=== PATIENT | female | born 1935 | race Caucasian/White ===

== ENCOUNTER 2018-05-01 11:28 | Inpatient (IN) ==
[2018-05-01 12:08] LABS: Basophils # 0.1 K/mcL (0.0-0.2); Basophils % 0.5 %; Eosinophils # 0.1 K/mcL (0.0-0.6); Eosinophils % 1.3 %; Hematocrit 45.9 % (35.3-44.9); Hemoglobin 15.2 g/dL (11.5-15.4); Immature Granulocytes % 0.2 % (0-4); Lymphocytes # 1.8 K/mcL (0.6-4.6); Lymphocytes % 16.7 %; Mean Corpuscular HGB Conc 33.1 g/dL (31.6-35.5); Mean Corpuscular Hemoglobin 28.1 pg (28.0-33.3); Mean Platelet Volume 12.3 fL (9.4-12.4); Monocytes % 9.1 %; Neutrophils # 7.8 K/mcL (1.6-8.9); Platelet Count 217 K/mcL (140-400); Red Cell Distribution Width 13.8 % (11.5-14.5); Segmented Neutrophils % 72.2 %
[2018-05-01 12:14] LABS: INR 1.3; Prothrombin Time 14.3 Seconds (9.4-12.1)
[2018-05-01 12:16] LABS: Activated Partial Thrombo Time 32.9 Seconds (26.0-36.0)
[2018-05-01 12:43] LABS: Troponin I 0.11 ng/mL (< 0.04)
[2018-05-01 12:48] LABS: Calcium 9.5 mg/dL (8.6-10.3); Potassium 3.6 mEq/L (3.5-5.1)
[2018-05-01] MEDS ORDERED: Aspirin 325 MG TABLET PO ONE (13:11)
[2018-05-01] MEDS ORDERED: Furosemide 40 MG/4 ML VIAL IVP ONE (13:33)
--- NOTE | 2018-05-01 13:37 | Emergency Department Note ---
Disposition Clinical Impression: Hypertensive emergency, Elevated serum creatinine Acute CHF (congestive heart failure) Qualifiers: Heart failure type: unspecified Qualified Code(s): I50.9 - Heart failure, unspecified Disposition: Admitted As Inpatient Condition: Fair SOB HPI - General Chief Complaint: ED Shortness of Breath/Dyspnea Stated Complaint: chest pain sob Time Seen by Provider: 05/01/18 11:37 Source: patient, EMS Mode of arrival: EMS Limitations: no limitations Nursing Notes Reviewed: Yes Vital Signs Reviewed: Yes - History of Present Illness 83-year-old female prior history of hypertension however she quit taking her medications over a year ago presents with 3 days of shortness of breath. No inciting events. She has had a little bit of a cough. One episode of chest pain yesterday for a few minutes. Denies any fevers, nausea, vomiting. Reports that symptoms are worse whenever she lays flat. No prior history of congestive heart failure, CAD, DVT or PE. No other complaints. Pt Subjective Complaint: shortness of breath Onset (ago): day(s) Severity: moderate Consistency/Duration: intermittent Improves with: upright position Worsens with: lying flat Associated symptoms: Reports: cough, orthopnea. Denies: chest pain, fever Treatment prior to arrival: none - Related Data Home oxygen amount: none Home Medications Medication Instructions Recorded Confirmed No Known Home Drugs 05/01/18 05/01/18 Allergies Allergy/AdvReac Type Severity Reaction Status Date / Time No Known Allergies Allergy Verified 05/01/18 10:18 All systems ED: reviewed and negative except as stated. Cardiovascular: Reports: orthopnea. Denies: chest pain Respiratory: Reports: dyspnea Gastrointestinal: Denies: abdominal pain, nausea, vomiting Past Medical History - Past Medical History Attestation: Yes The following information was validated with the patient. Source: patient Medical history: Reports: hypertension [employer] history: Reports: bilateral tubal ligation - Social History Smoking Status: Never smoker Smokeless Tobacco Status: No Alcohol use: Reports: none Drug use: Reports: none Physical Exam - General Limitations: no limitations General appearance: alert, in no apparent distress - Head Head exam: atraumatic, normocephalic - Eye Eye exam: Present: normal appearance - ENT ENT exam: normal exam - Neck Neck exam: Present: normal inspection - Chest Chest inspection: Present: normal inspection, symmetric chest wall rise - Respiratory Respiratory exam: Present: other (Diminished bibasilar otherwise clear) - Cardiovascular Cardiovascular exam: Present: regular rate, normal rhythm, normal heart sounds - Abdominal Exam Abdominal exam: Present: soft, Non-Tender. Absent: tenderness, distention, rigidity - Extremities Exam Extremities exam: Present: normal inspection, full ROM - Expanded Upper Extremity Exam Shoulder exam: Present: normal inspection, full ROM Arm exam: Present: normal inspection, full ROM Elbow exam: Present: normal inspection, full ROM Forearm/Wrist exam: Present: normal inspection, full ROM Hand exam: Present: normal inspection, full ROM Vascular exam: Normal: radial pulse - Expanded Lower Extremity Exam Hip/Pelvis exam: Present: normal inspection, full ROM Upper leg exam: Present: normal inspection, full ROM Knee exam: Present: normal inspection, full ROM Lower leg exam: Present: normal inspection, full ROM Ankle exam: Present: normal inspection, full ROM Foot/toe exam: Present: normal inspection, full ROM - Skin Skin exam: Present: warm, dry Course Course Narrative: Patient seen and examined. Vital signs reviewed. Plan for EKG, chest x-ray as well as labs. Vital Signs Temperature 98.4 F 05/01/18 11:36 Pulse Rate 84 05/01/18 11:36 Respiratory Rate 20 05/01/18 11:36 Blood Pressure 184/110 05/01/18 11:36 O2 Sat by Pulse Oximetry 97 05/01/18 11:36 Temperature 98.4 F 05/01/18 11:36 Pulse Rate 85 05/01/18 14:36 Respiratory Rate 14 05/01/18 15:49 Blood Pressure 197/110 05/01/18 15:49 O2 Sat by Pulse Oximetry 97 05/01/18 14:36 Oxygen Delivery Oxygen Delivery Nasal Cannula Shortness of Breath/Dyspnea - [facility] Narrative Medical decision making narrative: 83-year-old female with orthopnea and dyspnea. EKG is sinus with PVCs. Chest x -ray with cardiomegaly and bilateral effusions. She is profoundly hypertensive here. Treated with Lasix and nitroglycerin drip. Admitted to the hospitalist service. - Lab Data Lab results reviewed: Yes I reviewed the patient's lab results. Result diagrams: 05/01/18 11:49 05/01/18 11:49 Lab Results 05/01/18 05/01/18 05/01/18 Range/Units 11:39 11:39 11:49 WBC 10.8 (4.3-11.1) K/mcL RBC 5.40 H (3.82-4.97) M/mcL Hgb 15.2 (11.5-15.4) g/dL Hct 45.9 H (35.3-44.9) % MCV 85.0 (83.0-100.0) fL MCH 28.1 (28.0-33.3) pg MCHC 33.1 (31.6-35.5) g/dL RDW 13.8 (11.5-14.5) % Plt Count 217 (140-400) K/mcL MPV 12.3 (9.4-12.4) fL Immature Gran % 0.2 (0-4) % Seg Neutrophils % 72.2 % Lymphocytes % 16.7 % Monocytes % 9.1 % Eosinophils % 1.3 % Basophils % 0.5 % Neutrophils # 7.8 (1.6-8.9) K/mcL Lymphocytes # 1.8 (0.6-4.6) K/mcL Monocytes # 1.0 (0.0-1.3) K/mcL Eosinophils # 0.1 (0.0-0.6) K/mcL Basophils # 0.1 (0.0-0.2) K/mcL PT 14.3 H (9.4-12.1) Seconds INR 1.3 APTT 32.9 (26.0-36.0) Seconds Sodium (136-145) mEq/L Potassium (3.5-5.1) mEq/L Chloride (98-107) mEq/L Carbon Dioxide (23-29) mEq/L BUN (8-23) mg/dL Creatinine (0.60-1.20) mg/dL Est GFR ( Amer) (> 60) Est GFR (Non-Af Amer) (> 60) BUN/Creatinine Ratio (6-26) Glucose (70-105) mg/dL Calculated Osmolality (280-300) Calcium (8.6-10.3) mg/dL Troponin I (< 0.04) ng/mL B-Natriuretic Peptide 1870 H (Less than 100) pg/mL 05/01/18 Range/Units 11:49 WBC (4.3-11.1) K/mcL RBC (3.82-4.97) M/mcL Hgb (11.5-15.4) g/dL Hct (35.3-44.9) % MCV (83.0-100.0) fL MCH (28.0-33.3) pg MCHC (31.6-35.5) g/dL RDW (11.5-14.5) % Plt Count (140-400) K/mcL MPV (9.4-12.4) fL Immature Gran % (0-4) % Seg Neutrophils % % Lymphocytes % % Monocytes % % Eosinophils % % Basophils % % Neutrophils # (1.6-8.9) K/mcL Lymphocytes # (0.6-4.6) K/mcL Monocytes # (0.0-1.3) K/mcL Eosinophils # (0.0-0.6) K/mcL Basophils # (0.0-0.2) K/mcL PT (9.4-12.1) Seconds INR APTT (26.0-36.0) Seconds Sodium 138 (136-145) mEq/L Potassium 3.6 (3.5-5.1) mEq/L Chloride 103 (98-107) mEq/L Carbon Dioxide 26 (23-29) mEq/L BUN 26 H (8-23) mg/dL Creatinine 1.46 H (0.60-1.20) mg/dL Est GFR ( Amer) 41 L (> 60) Est GFR (Non-Af Amer) 34 L (> 60) BUN/Creatinine Ratio 18 (6-26) Glucose 112 H (70-105) mg/dL Calculated Osmolality 292 (280-300) Calcium 9.5 (8.6-10.3) mg/dL Troponin I 0.11 H* (< 0.04) ng/mL B-Natriuretic Peptide (Less than 100) pg/mL - Radiology Data Radiology results reviewed: Yes I reviewed the patient's radiology results. Chest X-Ray 05/01/18 11:39 IMPRESSION: Cardiomegaly with prominent interstitial markings diffusely, as well as bilateral pleural effusions, moderate on the left and small on the right. Findings felt to likely represent sequela of congestive failure. Bibasilar airspace disease could represent atelectasis, though pneumonia cannot be excluded. D/ / Frederick Jacob MD / Frederick Jacob MD Interpreting Provider: Frederick Jacob MD - EKG Data EKG attestation: Yes I reviewed and interpreted this EKG. EKG results narrative: EKG demonstrates sinus rhythm with PVCs. Left axis deviation. Prolonged OH interval of 204 with first-degree block. Normal R-wave progression. Nonspecific ST-T wave changes laterally. No gross ST elevations or depressions. No acute ischemic findings. No significant changes from prior EKG dated S.B.A.R. - S.B.A.R. Situation: Demographics, MOA Background: Presenting Complaint, Relevant PMH, Meds, & Allergies Assessment: Vital Signs, Course and respsone to treatment, Exam Concerns, Patient/Family Expectation, Pertinant Lab Results Recommendation: Barrier(s) to disposition, Recommendation based on pending studies, treatments, or consults S.B.A.R. Report Given to: Dr. Hamilton Attestation Statement - Attestation Attestation: I examined this patient and my medical decision-making was reviewed with the Resident Physician, Dr. Draper. I agree with the documented findings, disposition and treatment plan as described except to the extent set forth below. Patient is an 83-year-old white female who denies any prior cardiac history who presents to emergency department with a 3 day history of gradually worsening shortness of breath. Patient has an occasional coarse sounding cough at bedside but states that this is no worse than her baseline, history of smoking, denies any fevers chills or URI symptoms. Patient states she had some associated chest pressure with coughing and deep breathing yesterday but denies any currently. I agree with patient's physical exam findings as documented. Patient was hypertensive on arrival. After inquiring about her blood pressure she states that she has not been taking her medications for some time. Patient with coarse breath sounds suspicious for mild pulmonary edema. No significant respiratory distress or hypoxia. Patient had full lab evaluation which showed mild renal insufficiency compared to baseline, elevated BNP, and elevated troponin. Serial EKGs did not show any ischemia. Patient received aspirin on arrival as well as medications for her congestive heart failure and blood pressure. Case was discussed with hospitalist who accepted patient for admission. Concerns right now with elevated troponin possibly due to non-STEMI versus elevated serum creatinine. Suspicious for non-STEMI with new onset congestive heart failure. Patient will be admitted for further evaluation.
[2018-05-01] MEDS ORDERED: Nitroglycerin 25 MG/250 ML INFUS..BTL IVC SCH (14:30)
[2018-05-01] MEDS: niCARdipine 40 MG/200 ML MLS IVC SCH ×2 (16:31→20:13)
--- NOTE | 2018-05-01 17:14 | Internal Med History&Physical ---
<Alma Art - Last Filed: 05/01/18 18:27> Date of Encounter: 05/01/18 Time of Encounter: 16:30 Internal Medicine - H&P: HPI Chief complaint: Shortness of breath Admitted From: Emergency Dept History of present illness: Ms. Kohler is a 83 year old female who presented with worsening shortness of breath for the past 3 days and orthopnea which started 7 days ago and has been increasing in severity since. She also states that the shortness of breath is intermittent at rest, constant on exertion and worse at night when trying to lay flat. She states that she has had 2 epidoses of 1/10 chest pressure yesterday and the day before that lasted for one minute while at rest and trying to adjust position while laying in bed due to orthopnea. Today her daughter brought her to urgent care and they found an elevated blood pressure and called EMS to bring her to [place] ED for hypertensive emergency. She has a past medical history of hypertension, she states that it has been uncontrolled for years and she has seen many providers who have tried multiple unknown medications without success. She states that 12-18 months ago she was told at a dentist appointment that her SBP was around 200 and was told to see a doctor but did not. She denies any other past medical history besides surgical for tubal ligation and cholecystectomy. She stopped taking any hypertensive medications about one year ago. On arrival her blood pressure was 184/110, HR 84 , RR 20 and SpO2 97%. BNP was 1870, troponin 0.11, creatinine 1.46. EKG showed normal sinus rhythm with PVC's, left axis deviation, prolonged KS with first degree heart block, nonspecific ST-T changes and no gross ST elevations or depression, no acute ischemic changes and no change from prior EKG. Chest XR showed cadiomegaly with prominent interstitial markings diffusely, bilateral pleural effusions and bibasilar airspace disease. Past Med Surg Social Fam HX - Past Medical History Medical history: hypertension - Past Surgical History Surgical History: non-contributory, cholecystectomy Additional surgical history: Bilateral tubal ligation - Social History Smoking Status: Never smoker Smokeless Tobacco Status: No Alcohol use: none Drug use: none Activity Level: Independent ambulation Recent Out of Country Travel Within the Last 8 Weeks: No Exposure or Possible Exposure to Illness During Travel: No Internal Medicine - H&P: Meds No Known Home Drugs 05/01/18 [History] 3 Allergy/AdvReac Type Severity Reaction Status Date / Time No Known Allergies Allergy Verified 05/01/18 10:18 All Systems PM: A 10-system review of systems was performed and is negative for pertinent findings except as documented above in the HPI. - Constitutional Constitutional: no chills, no fatigue, no fever(s), no falls, no lethargy, no weakness - EENT Eyes: no change in vision Ears: no decreased hearing, no tinnitus Nose, mouth and throat: no hoarseness, no neck pain - Cardiovascular Cardiovascular ROS IM: dyspnea on exertion, orthopnea, paroxysmal nocturnal dyspnea, no chest pain, no claudication, no diaphoresis, no edema, no lightheadedness, no palpitations, no syncope Additional comments: Denies chest pain today, per HPI - Respiratory Respiratory: dyspnea on exertion, no cough, no pain on inspiration, no chest congestion, no pain with cough - Gastrointestinal Gastrointestinal: no abdominal pain, no change in bowel habits, no constipation , no diarrhea, no dysphagia, no nausea, no vomiting - Genitourinary Genitourinary: no change in urinary stream, no difficulty urinating, no dysuria , no urinary frequency, no urinary incontinence, no urinary urgency Menstruation: post menopausal - Musculoskeletal Musculoskeletal ROS IM: no arthralgias, no back pain, no limited range of motion , no muscle weakness, no numbness, no tingling - Neurological Neurological ROS: no dizziness, no focal weakness, no frequent falls, no headache(s), no loss of vision, no numbness, no paresthesias, no tingling, no weakness - Psychiatric Psychiatric: no anxiety - Endocrine Endocrine IM: no cold intolerance, no excessive sweating, no fatigue, no heat intolerance - Constitutional Vitals: Temp Pulse Resp BP Pulse Ox 98.4 F 85 14 197/110 97 05/01/18 11:36 05/01/18 14:36 05/01/18 15:49 05/01/18 15:49 05/01/18 14:36 General appearance: Present: cooperative, A&O X 3, pleasant, no acute distress, answers questions appropriately Exam: In no acute distress, answered questions appropriately - Head Head exam: Present: atraumatic, normocephalic - Eye Eye exam: Present: EOMI, PERRL, conjuntiva pink, sclera anicteric Pupils: Present: PERRL - ENT ENT exam: Present: mucous membranes moist - Neck Neck exam general surgery: Present: supple, trachea midline. Absent: lymphadenopathy, thyromegaly - Expanded Neck Exam Neck exam: Absent: carotid bruit, tracheal deviation - Respiratory Respiratory exam: Present: CTAB. Absent: accessory muscle use, rales, rhonchi, wheezes - Cardiovascular Cardiovascular exam: Present: JVD, RRR, +S1, +S2. Absent: diastolic murmur, gallop, rubs, systolic murmur - Expanded Cardiovascular Exam Peripheral pulses: 2+: Radial (L), Radial (R) - GI/Abdominal GI/Abdominal exam: Present: normal bowel sounds, soft, no peritoneal signs. Absent: distended, guarding, hepatomegaly, rebound, rigid, splenomegaly, tenderness - Extremities Exam Extremities exam: Present: normal capillary refill, warm, radial pulses palpable and symmetrical. Absent: calf tenderness, cyanotic, pedal edema, tenderness - Expanded Upper Extremities Exam General: Present: normal inspection - Expanded Lower Extremities Exam Hip exam: Absent: swelling - Neurological Exam Neurological exam: Present: alert, CN II-XII intact, oriented X3, no focal deficits, strengths equal and symetr throughout. Absent: pronater drift, facial droop, speech deficit - Psychiatric Psychiatric exam: Present: normal affect, normal mood Internal Med - H&P Results - Labs CBC & Chem 7: 05/01/18 11:49 05/01/18 11:49 - Assessment and plan (1) Hypertensive emergency Current Visit: Yes Status: Acute Assessment and plan: History of uncontrolled hypertension, not on antihypertensives for past year 184/110 in ED, during interview was 225/127 Signs of end organ damage- elevated troponin 1.1, increased creatinine 1.46 Decrease blood pressure by 10-20% over next 24 hours Currently on nicardipine drip Will start oral norvasc 5 mg po Gentle diuresis lasix 20 mg qd Continuous cardiac monitoring Trend troponins, if increase will make NPO at midnight Monitor renal function and creatinine Repeat EKG Continue to monitor (2) New onset of congestive heart failure Current Visit: Yes Status: Acute Assessment and plan: No previous history of congestive heart failure Presented with increasing shortness of breath and orthpnea for one week Chest XR showed cardiomegaly with prominent interstitial markings, bilateral pleural effusions BNP 1870 ECHO ordered Gentle diuresis with lasix 20 mg qd Monitor renal function Cardiac diet Monitor I & O Continue to monitor (3) Elevated troponin Current Visit: Yes Status: Acute Assessment and plan: Troponin elevated on admission at 0.11, trending Presented with shortness of breath and orthopnea 2 episodes of chest pain, pressure sensation 1/10 pain, duration 1 minute, at rest, yesterday and day before EKG showed sinus rhythm with PVC's, left axis deviation, 1st degree heart block, non specific ST-T waves laterally, no gross ST elevations or depression, no acute ischemic changes, no change from prior EKG Likely secondary hypertensive emergency, dyspnea and new onset CHF Begin aspirin Continue to monitor If trending up, will make NPO at midnight and consult cardiology (4) Acute kidney failure Current Visit: Yes Status: Acute Assessment and plan: Unsure of baseline creatinine Creatinine on admission elevated at 1.46, GFR 34, BUN 26 Most likely secondary to hypertensive emergency vs possible chronic kidney disease Retroperitoneal ultrasound pending U/A pending Urine electrolytes pending Continue to monitor as using lasix for gentle diuresis Qualifiers: Acute renal failure type: unspecified Qualified Code(s): N17.9 - Acute kidney failure, unspecified (5) Shortness of breath Current Visit: No Status: Acute Assessment and plan: Presented with increasing shortness of breath for past 3 days and orthopnea for past 7 days Improved, states she is no longer short of breath Currently saturating at 97% on room air Likely secondary to new onset heart failure Supplemental oxygen as needed - Time Spent With Patient Total time spent is greater than 50% in coordination of care (as documented) at patient's floor/unit and/or counseling patient: Greater than 35 minutes <Master Mejias T - Last Filed: 05/01/18 19:50> Date of Encounter: 05/01/18 Internal Medicine - H&P: HPI History of present illness: Ms. Kohler is a 83 year old female All Systems PM: A 10-system review of systems was performed and is negative for pertinent findings except as documented above in the HPI. - Constitutional Vitals: Temp Pulse Resp BP Pulse Ox 98.2 F 82 18 162/79 92 05/01/18 18:47 05/01/18 19:45 05/01/18 19:45 05/01/18 19:45 05/01/18 19:45 Internal Med - H&P Results - Labs CBC & Chem 7: 05/01/18 11:49 05/01/18 11:49 Labs: Cardiac Enzymes 05/01/18 Range/Units 17:43 Troponin I 0.10 H* (< 0.04) ng/mL - Time Spent With Patient Total time spent is greater than 50% in coordination of care (as documented) at patient's floor/unit and/or counseling patient: - Attending Attestation I have personally seen and examined this patient on 05/01/18 and reviewed her chart and labs, including medications, I have discussed plan of care with the resident physician, whose documentation reflect our plan of care. With the additions/exceptions set forth below. 83-year-old female with chronic uncontrolled hypertension who is not taking any medications at home presented with orthopnea, decreased exercise tolerance, negligible chest pain, and shortness of breath for the past week. Workup in the emergency room revealed blood pressure systolic 210, diastolic in the 100s, with suspected acute kidney injury as well as elevated troponin 0.11, BNP 1870, pulmonary vascular congestion. Physical examination is unremarkable and patient is alert and oriented. The patient will be admitted and managed for hypertensive emergency with a KI, elevated troponin, and CHF as well as pulmonary vascular congestion. Continue Nicardipine drip, Begin ASA, Norvasc, Continue Lasix, titrate and add hypertension medications as tolerated, continue aspirin, obtain echocardiogram, and retroperitoneal ultrasound, check urine analysis as well as urine electrolytes, cycle troponins. Rest of details as in the resident physicians documentation
[2018-05-01] MEDS ORDERED: Naloxone 0.4 MG/ML INJ IVP PRN (17:27)
--- NOTE | 2018-05-01 18:21 | Event Note ---
Date of Encounter: 05/01/18 I
[2018-05-01 21:57] LABS: Bilirubin,Urine Negative (Negative); Blood,Urine Negative (Negative); Clarity,Urine Clear (Clear); Color,Urine Yellow (Yellow); Glucose,Urine (UA) Normal (Normal); Ketones,Urine Negative (Negative); Leukocyte Esterase,Urine Small (Negative); Nitrite,Urine Negative (Negative); PH,Urine 6.5 pH Units (5.0-8.0); Protein,Urine 100 mg/dL (Neg-Trace); Specific Gravity,Urine 1.014 (1.010-1.025); Urobilinogen,Urine Normal (Normal)
[2018-05-01 22:00] LABS: Bacteria,Urine None Seen per hpf (None-Few); Hyaline Casts,Urine None Seen per lpf (None-Few); RBC,Urine 0-3 per hpf (0-3); Squamous Epithelial Cell,Urine Moderate per lpf (None-Few)
[2018-05-01 22:03] LABS: Sodium, Urine 67.3 mEq/L
[2018-05-02] MEDS: niCARdipine 40 MG/200 ML MLS IVC SCH ×6 (00:16→21:22)
[2018-05-02 04:52] LABS: Basophils # 0.1 K/mcL (0.0-0.2); Basophils % 0.8 %; Eosinophils # 0.3 K/mcL (0.0-0.6); Eosinophils % 2.6 %; Hematocrit 46.3 % (35.3-44.9); Hemoglobin 15.5 g/dL (11.5-15.4); Immature Granulocytes % 0.4 % (0-4); Lymphocytes # 1.7 K/mcL (0.6-4.6); Lymphocytes % 15.9 %; Mean Corpuscular HGB Conc 33.5 g/dL (31.6-35.5); Mean Corpuscular Hemoglobin 28.3 pg (28.0-33.3); Mean Corpuscular Volume 84.6 fL (83.0-100.0); Mean Platelet Volume 12.9 fL (9.4-12.4); Monocytes # 0.8 K/mcL (0.0-1.3); Monocytes % 7.6 %; Neutrophils # 7.6 K/mcL (1.6-8.9); Platelet Count 231 K/mcL (140-400); Red Blood Count 5.47 M/mcL (3.82-4.97); Red Cell Distribution Width 13.6 % (11.5-14.5); Segmented Neutrophils % 72.7 %
[2018-05-02 05:10] LABS: Calcium 9.4 mg/dL (8.6-10.3); Magnesium 2.4 mg/dL (1.6-2.6); Phosphorous 4.7 mg/dL (2.7-4.5); Potassium 3.2 mEq/L (3.5-5.1)
[2018-05-02] MEDS ORDERED: *HR* Heparin 5,000 UNIT/ML VIAL SQ SCH (06:00)
[2018-05-02] MEDS: Aspirin Enteric Coated 81 MG Tablet PO SCH (08:10)
[2018-05-02] MEDS: amLODIPine 5 MG TABLET PO SCH (08:10)
[2018-05-02 08:25] LABS: Chol/HDL Ratio 3.1 (0-4.9)
[2018-05-02] MEDS ORDERED: Furosemide 20 MG/2 ML VIAL IVP SCH (09:00)
[2018-05-02] MEDS ORDERED: amLODIPine 5 MG TABLET PO SCH (09:00)
--- NOTE | 2018-05-02 09:10 | Electrocardiograph Report ---
[place] [facility] Test Date: 2018-05-01 Pat Name: Veronica Kohler Department: [id number] Room: 2N14 Gender: [employer] Se[employer]: : 1935 Requested By: Chao Draper Order Number: [id number] Reading MD: Colten Colindres Measurements Intervals [place] Rate: 83 P: 90 CO: 202 QRS: 21 QRSD: 91 T: 113 QT: 396 QTc: 466 Interpretive Statements Sinus rhythm Ventricular premature complex Anterior infarct, old LVH Electronically Signed On 05-02-2018 9:08:54 EDT by Colten Colindres
[2018-05-02] MEDS ORDERED: *HR* Heparin 5,000 UNIT/ML VIAL IVP PRN ×2 (11:16)
[2018-05-02] MEDS ORDERED: *HR* Heparin 5,000 UNIT/ML VIAL IVP ONE (11:16)
--- NOTE | 2018-05-02 11:31 | Cardiology Consult Note ---
<Nito Blood S - Last Filed: 05/02/18 11:23> Date of Encounter: 05/02/18 Time of Encounter: 11:20 Assessment and Plan (1) Hypertensive emergency Current Visit: Yes Status: Acute Pt has a hx of uncontrolled HTN, reportedly had a SBP of 200 about 1 yr ago and never followed up -has tried multiple medications and regimens, none have worked -BP on admission was 184/110 End organ damage: -elevated troponin 0.11 --> 0.10 --> 0.27 --> 0.82 -Creatinine 1.70 (increased from 1.46), there are no records for other visits so no way to tell a baseline Pt denies any hx of cardiac problems, has never had an NV and denies having any stents. -reportedly had a stress test two years ago, which was negative CXR showed cardiomegaly with prominent interstitial markings diffusely, B/L pleural effusions, bibasilar airspace dz EKG at 13:08 on 05/01/18 showed sinus rhythm, multiple PVC, ?old anterior infarct -T wave inversion in II, III, avF , could be ischemia secondary to impaired demand No previous ECHO to compare Plan: -pt currently on Nicardipine drip -PO amlodipine as per primary 5 mg -Lasix 20mg qd as per primary -telemetry monitoring -recommend kidney consult -heparin drip as per protocol -if kidney fxn improves, cath may be needed but for now not recommended as kidney fxn shows an LEXIE -ECHO pending -cardiac diet -I&O's as per primary (2) Elevated troponin Current Visit: Yes Status: Acute As per above: -troponins trending up 0.11 -> 0.1 ---> 0.27 ---> 0.82 -heparin drip as per protocol -most likely a type II due to demand ischemia from HTN emergency -continue telemetry -if kidney fxn improves, may cath -ECHO pending -ASA 81mg daily, continue Lipitor -will increase Lopressor to 25mg PO BID (3) Acute kidney failure Current Visit: Yes Status: Acute There is no record of a baseline BUN/Perinatal Specialist for the pt -Admission creatinine 1.46, BUN 26 -GFR 34 Currently creatinine is 1.70, BUN 33, GFR 29 Retroperitoneal US showed no hydronephrosis, PVR 186 mL UA showed small leukocyte esterase, 5-15 WBC, moderate squamous epithelial cells Plan: -consult nephrology if ok with primary -Lasix as per primary -continue to monitor BUN/Perinatal Specialist and GFR -avoid nephrotoxic agents -strict I&O's Qualifiers: Acute renal failure type: unspecified Qualified Code(s): N17.9 - Acute kidney failure, unspecified Discussion w patient/family: The assessment and plan as outlined above was discussed with the patient and/or family members who expressed understanding and agreement. All questions were answered. Thank you for involving us in the care of your patient. Please call with any questions. History of Present Illness Consult date: 05/02/18 Requesting physician: Alma Art Consult reason: elevated troponin Chief complaint: SOB History of present illness: Ms. Kohler is a 83 year old female who has c/o worsening shortness of breath for the last 4 days. Pt has a PMH of HTN. She states that she began "breathing fast " 4 days ago and couldn't "breath properly." The severity increased over the last few days and she had SOB at both rest and with exertion, worse with trying to lay flat. She states that she didn't have any chest pain associated with the SOB. She was unable to talk loudly and felt like she had a pressure on her chest , although didn't say it was a pain. She denies any associated cough. The daughter reportedly brought her to urgent care and she had elevated BP, so was brought to [place] [facility] for HTN emergency. She has a hard time controlling her BP and has tried many different regimens. BP has high as the 200's when she went to a dentist appt about 1 yr ago. BP on arrival was 184/110, HR 84 and the pt was treated with In the ER troponin 0.11, trending up ---> 0.1 ---> 0.27 ---> 0.82, most likely demand ischemia and inadequate oxygen delivery 2/2 HTN (type 2) -BNP 1870, 806 most likely secondary to LEXIE Pt denies any hx of cardiac problems, has never had an NV and denies having any stents. -reportedly had a stress test two years ago, which was negative CXR showed cardiomegaly with prominent interstitial markings diffusely, B/L pleural effusions, bibasilar airspace dz EKG at 13:08 on 05/01/18 showed sinus rhythm, multiple PVC, ?old anterior infarct -T wave inversion in II, III, avF , could be ischemia secondary to impaired demand Fluids - none Electrolytes - potassium 3.2 Nutrition - cardiac diet DVT prophylaxis - heparin drip as per protocol GI prophylaxis - not indicated Past Med Surg Social Fam HX - Past Medical History Medical history: hypertension - Past Surgical History Surgical History: non-contributory, cholecystectomy Additional surgical history: Bilateral tubal ligation - Social History Smoking Status: Never smoker Smokeless Tobacco Status: No Alcohol use: none Drug use: none Medications and Allergies No Known Home Drugs 05/01/18 [History] 3 Allergy/AdvReac Type Severity Reaction Status Date / Time No Known Allergies Allergy Verified 05/01/18 10:18 All Systems Review: The remainder of the systems were reviewed and are negative - Constitutional Constitutional: no chills, no fever(s) - Cardiovascular Cardiovascular: dyspnea at rest, dyspnea on exertion, leg edema, orthopnea, paroxysmal nocturnal dyspnea, no chest pain at rest, no chest pain with exertion , no palpitations - Respiratory Respiratory: dyspnea, no cough, no wheezing - Gastrointestinal Gastrointestinal: no abdominal pain, no diarrhea - Genitourinary Genitourinary: no dysuria - Neurological Neurological: no numbness, no syncope, no tingling Physical Examination Vital Signs, Last 4 Hours Pulse Resp BP Pulse Ox 05/02/18 10:38 69 20 93 05/02/18 08:25 18 157/65 93 05/02/18 07:52 75 General: Conversant HEENT: Atraumatic Neck: No JVD Cardiac: Reg Rate and Rhythm, Normal S1 and S2, No Murmur Lungs: Normal Breath Sounds, No Wheeze, Rales, Rhonchi Neuro: Alert and responsive, No focal deficits noted Abdomen: Soft, Non-Tender Skin: No rashes noted on visualized skin Musculoskeletal: No Chest Wall Tenderness Extremities: Normal Pulses, Other (mild B/L LE edema) Results 05/02/18 04:25 05/02/18 04:25 Lab Results 05/01/18 05/02/18 05/02/18 17:43 00:18 04:25 WBC 10.4 Hgb 15.5 H Hct 46.3 H Plt Count 231 Sodium Potassium Chloride Carbon Dioxide BUN Creatinine Glucose Calcium Magnesium Troponin I 0.10 H* 0.27 H* B-Natriuretic Peptide 05/02/18 05/02/18 05/02/18 04:25 04:25 04:25 WBC Hgb Hct Plt Count Sodium 139 Potassium 3.2 L Chloride 103 Carbon Dioxide 28 BUN 33 H Creatinine 1.70 H Glucose 126 H Calcium 9.4 Magnesium 2.4 Troponin I 0.82 H* B-Natriuretic Peptide 806 H Consult Discharge Plan - Plan Referrals: Debbie Keith CNP [Partnered Physician] - (Office will call patient at home with follow up appointment) Rosetta Esparza CNP [Advanced Practice Nurse] - 05/08/18 9:45 am (Please arrive 30 minutes early to fill out paper work. Take with you your ins. card, Picture ID, all medications in the bottles including over the counter meds. This office does not give out controlled meds. If you need to cancel please call 24 hour before your appointment at [phone]. This is located in the medical office building [address].) <Kaylie Carlisle - Last Filed: 05/02/18 16:27> Date of Encounter: 05/02/18 - Attending Attestation I examined this patient and my medical decision-making was reviewed with the Resident Physician. I agree with the documented findings, disposition and treatment plan. 83F presenting with worsening SOB over the past few days associated with chest pressure. Generally does not doctor - last seen by PCP over a year ago. Patient hemodynamically stable. Troponin noted to be elevating since admission. Denies chest pain. ECG demonstrates LVH criteria with secondary repolarization. No acute findings. Impression/Plan: 1. NSTEMI: Elevated troponin now 1.23 in setting of renal dysfunction chronicity unknown and hypertensive urgency. Recommend trend troponin, continue heparin gtt, asa, statin. Discussed consideration for C but would like to see improvement in renal function. Will stop lasix. R/B/A of cath were discussed with patient who expressed understanding - would like to discuss with family first. Await echo findings. 2. HTN: Uncontrolled on admission now on nicardipine gtt. Will defer to primary team. Assessment and Plan Discussion w patient/family: The assessment and plan as outlined above was discussed with the patient and/or family members who expressed understanding and agreement. All questions were answered. Thank you for involving us in the care of your patient. Please call with any questions. History of Present Illness History of present illness: Ms. Kohler is a 83 year old female All Systems Review: The remainder of the systems were reviewed and are negative Physical Examination Vital Signs, Last 4 Hours Temp Pulse Resp BP Pulse Ox 05/02/18 15:44 74 05/02/18 15:40 97.7 F 72 18 149/61 94 05/02/18 13:58 75 20 141/53 95 05/02/18 13:00 74 20 150/76 94 Results 05/02/18 11:38 05/02/18 04:25 Lab Results 05/01/18 05/02/18 05/02/18 17:43 00:18 04:25 WBC 10.4 Hgb 15.5 H Hct 46.3 H Plt Count 231 INR Sodium Potassium Chloride Carbon Dioxide BUN Creatinine Glucose Calcium Magnesium Troponin I 0.10 H* 0.27 H* B-Natriuretic Peptide 05/02/18 05/02/18 05/02/18 04:25 04:25 04:25 WBC Hgb Hct Plt Count INR Sodium 139 Potassium 3.2 L Chloride 103 Carbon Dioxide 28 BUN 33 H Creatinine 1.70 H Glucose 126 H Calcium 9.4 Magnesium 2.4 Troponin I 0.82 H* B-Natriuretic Peptide 806 H 05/02/18 05/02/18 05/02/18 11:38 11:38 11:54 WBC 10.8 Hgb 14.7 Hct 45.0 H Plt Count 224 INR 1.2 Sodium Potassium Chloride Carbon Dioxide BUN Creatinine Glucose Calcium Magnesium Troponin I 1.23 H* B-Natriuretic Peptide
[2018-05-02 12:04] LABS: Hemoglobin 14.7 g/dL (11.5-15.4); Mean Corpuscular HGB Conc 32.7 g/dL (31.6-35.5); Mean Corpuscular Hemoglobin 28.1 pg (28.0-33.3); Mean Platelet Volume 12.8 fL (9.4-12.4); Platelet Count 224 K/mcL (140-400); Red Blood Count 5.23 M/mcL (3.82-4.97); Red Cell Distribution Width 13.7 % (11.5-14.5)
[2018-05-02 12:10] LABS: Heparin anti-factor XA UFH 0.03 IU/mL (0.30-0.70)
[2018-05-02 12:11] LABS: INR 1.2; Prothrombin Time 13.5 Seconds (9.4-12.1)
[2018-05-02] MEDS: Heparin 25,000 UNIT/500 ML D5W 25,000 UNIT/500 ML BAG IVC SCH (12:32)
--- NOTE | 2018-05-02 14:12 | Internal Med Progress Note ---
<Alma Art - Last Filed: 05/02/18 14:37> Hospitalist Progress Note - Encounter Date of Encounter: 05/02/18 Time of Encounter: 10:30 - Subjective Interval History: Today is hospital day 1. Miss Kohler states that she is feeling well. She states that shortness of breath has decreased, she denies chest pain or palpitations. She admits to frequent throat clearing most likely due to post nasal drip and denies cough. She states that orthopnea is still present. She denies headache, vision changes, weakness, lightheadedness. She denies abdominal pain, diarrhea, constipation, dysuria, leg swelling or calf pain. Diagnosis, treatment and plan were explained to her understanding and all questions were answered. - Exam Vitals: Temp Pulse Resp BP Pulse Ox 98.1 F 75 20 141/53 95 05/02/18 11:40 05/02/18 13:58 05/02/18 13:58 05/02/18 13:58 05/02/18 13:58 Exam: General: Resting comfortably, in no acute distress, AAOx3, pleasant HEENT: Normocephalic, atraumatic, EOMI, PERRL, mucus membranes moist. Neck soft , supple, trachea midline, no cervical lymphadenopathy. Cardio: Mild JVD present. Regularly irregular rate, no murmurs, rubs or gallops. Normal S1, S2. No carotid bruits. Pulmonary: No wheezes, rales or rhonchi. No accessory respiratory muscle use. Abdomen: Soft, non tender, non distended, normal bowel sounds, no guarding, rebound or rigidity. No CVA or suprapubic tenderness. Extremities: Radial and dorsal pedis pulses 2+ and symmetrical, normal capillary refill, no clubbing. No peripheral edema or calf tenderness. Neuro: CN 2-12 intact, no focal deficits. Psych: Normal mood and affect, answers questions appropriately - Assessment and Plan (1) Hypertensive emergency Current Visit: Yes Status: Acute Assessment and Plan: History of uncontrolled hypertension, not on antihypertensives for past year 184/110 on admission, currently at 141/53 Creatinine on admission 1.46, currently 1.70 Troponin on admission 0.10, is continuing to trend upwards, currently 1.23 Cardiology consulted: recs include heparin drip, increased metoprolol 25 mg BID and possible cath pending nephrology recs on renal function Continue nicardipine drip, amlodipine 10 mg, aspirin 81 mg, atorvastatin 20 mg Lasix discontinued as increased creatinine Phosphorus 4.7, Magnesium 2.4, Potassium 3.2 Replaced potassium Continuous cardiac monitoring Continue to monitor renal function ECHO report pending (2) Elevated troponin Current Visit: Yes Status: Acute Assessment and Plan: Troponin on admission 0.11, has increased to 1.23 Cardiology consulted, started heparin drip, increased metoprolol, considering [facility] pending nephro recs Likely secondary to HTN emergency vs new onset CHF vs dyspnea Continue heparin drip, aspirin, nicardipine drip, amlodipine and metoprolol Continue to monitor (3) New onset of congestive heart failure Current Visit: Yes Status: Acute Assessment and Plan: Presented with shortness of breath, orthopnea and decreased exercise tolerance. Likely secondary to uncontrolled hypertension, patient stopped taking antihypertensives about 1 year ago BNP on admission 1870 Chest XR showed pulmonary vascular congestion Lasix currently held as increase in creatinine Net balance at +570 mL Cardiac diet (4) Acute kidney failure Current Visit: Yes Status: Acute Assessment and Plan: Unknown baseline renal function On admission, Cr 1.46, GFR 34, BUN 26 Currently Cr 1.70, GFR 29, BUN 33 Likely secondary to hypertensive emergency Lasix held due to rise in Cr Renal ultrasound showed no hydronephrosis U/A showed proteinuria Continue to monitor Nephrology recs pending (5) Shortness of breath Current Visit: No Status: Inactive Assessment and Plan: Improving, denies shortness of breath today Presented with increasing shortness of breath and orthopnea Most likely secondary to new onset heart failure Currently 95% on 2L nasal cannula continue supplemental oxygen as needed DVT Prophylaxis: On heparin drip - Time Spent with Patient Total time spent is greater than 50% in coordination of care (as documented) at patient's floor/unit and/or counseling patient: Internal Medicine: Result - Labs CBC & Chem 7: 05/02/18 11:38 05/02/18 04:25 Labs: Short CBC 05/02/18 05/02/18 Range/Units 04:25 11:38 WBC 10.4 10.8 (4.3-11.1) K/mcL Hgb 15.5 H 14.7 (11.5-15.4) g/dL Hct 46.3 H 45.0 H (35.3-44.9) % Plt Count 231 224 (140-400) K/mcL Neutrophils # 7.6 (1.6-8.9) K/mcL BMP 05/02/18 04:25 Sodium 139 Potassium 3.2 L Chloride 103 Carbon Dioxide 28 BUN 33 H Creatinine 1.70 H Glucose 126 H Calcium 9.4 Cardiac Enzymes 05/01/18 05/02/18 05/02/18 Range/Units 17:43 00:18 04:25 Troponin I 0.10 H* 0.27 H* 0.82 H* (< 0.04) ng/mL 05/02/18 Range/Units 11:54 Troponin I 1.23 H* (< 0.04) ng/mL Urine 05/01/18 Range/Units 21:31 Urine Color Yellow (Yellow) Urine Clarity Clear (Clear) Urine pH 6.5 (5.0-8.0) pH Units Ur Specific [place] 1.014 (1.010-1.025) Urine Protein 100 H (Neg-Trace) mg/dL Urine Glucose (UA) Normal (Normal) mg/dL - ABG Interpretation ABG results: PT/INR, D-dimer PT 13.5 Seconds (9.4-12.1) H 05/02/18 11:38 - Impressions Impressions Retroperitoneum Ultrasound 05/01/18 17:32 IMPRESSION: 1. No hydronephrosis. 2. Postvoid bladder volume is 186 mL. D/ / Jose Luis Blake MD / Jose Luis Blake MD Interpreting Provider: Jose Luis Blake MD - VTE Documentation of Mechanical Device: Intermittent pneumatic compression device Consult Discharge Plan - Plan Referrals: Debbie Keith CNP [Partnered Physician] - (Office will call patient at home with follow up appointment) Rosetta Esparza CNP [Advanced Practice Nurse] - 05/08/18 9:45 am (Please arrive 30 minutes early to fill out paper work. Take with you your ins. card, Picture ID, all medications in the bottles including over the counter meds. This office does not give out controlled meds. If you need to cancel please call 24 hour before your appointment at [phone]. This is located in the medical office building [address].) <Master Mejias T - Last Filed: 05/02/18 14:59> Hospitalist Progress Note - Encounter Date of Encounter: 05/02/18 - Exam Vitals: Temp Pulse Resp BP Pulse Ox 98.1 F 75 20 141/53 95 05/02/18 11:40 05/02/18 13:58 05/02/18 13:58 05/02/18 13:58 05/02/18 13:58 - Time Spent with Patient Total time spent is greater than 50% in coordination of care (as documented) at patient's floor/unit and/or counseling patient: Internal Medicine: Result - Labs CBC & Chem 7: 05/02/18 11:38 05/02/18 04:25 Labs: Short CBC 05/02/18 05/02/18 Range/Units 04:25 11:38 WBC 10.4 10.8 (4.3-11.1) K/mcL Hgb 15.5 H 14.7 (11.5-15.4) g/dL Hct 46.3 H 45.0 H (35.3-44.9) % Plt Count 231 224 (140-400) K/mcL Neutrophils # 7.6 (1.6-8.9) K/mcL BMP 05/02/18 04:25 Sodium 139 Potassium 3.2 L Chloride 103 Carbon Dioxide 28 BUN 33 H Creatinine 1.70 H Glucose 126 H Calcium 9.4 Cardiac Enzymes 05/01/18 05/02/18 05/02/18 Range/Units 17:43 00:18 04:25 Troponin I 0.10 H* 0.27 H* 0.82 H* (< 0.04) ng/mL 05/02/18 Range/Units 11:54 Troponin I 1.23 H* (< 0.04) ng/mL Urine 05/01/18 Range/Units 21:31 Urine Color Yellow (Yellow) Urine Clarity Clear (Clear) Urine pH 6.5 (5.0-8.0) pH Units Ur Specific [place] 1.014 (1.010-1.025) Urine Protein 100 H (Neg-Trace) mg/dL Urine Glucose (UA) Normal (Normal) mg/dL - ABG Interpretation ABG results: PT/INR, D-dimer PT 13.5 Seconds (9.4-12.1) H 05/02/18 11:38 - Impressions Impressions Retroperitoneum Ultrasound 05/01/18 17:32 IMPRESSION: 1. No hydronephrosis. 2. Postvoid bladder volume is 186 mL. D/ / Jose Luis Blake MD / Jose Luis Blake MD Interpreting Provider: Jose Luis Blake MD - Attending Attestation I have personally seen and examined this patient on 05/02/18 and reviewed her chart and labs, including medications, I have discussed plan of care with the resident physician, whose documentation reflect our plan of care. With the additions/exceptions set forth below. 83-year-old female being managed for HTN emergency with pulm edema, CHF, LEXIE and elevated troponin She continues to deny chest pain, reported orthopnea, improved with O2 supplementation She received lasix yesterday and this mrn, with improvement in shortness of breath. Blood pressure currently being controlled with nicardipine drip, amlodipine, metoprolol tapering off nicardipine infusion. 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 Continue O2 supplementation, replace K, Rest of details as in the resident physicians documentation <Alma Art - Last Filed: 05/02/18 14:37> (4) Acute kidney failure Qualifiers: Acute renal failure type: unspecified Qualified Code(s): N17.9 - Acute kidney failure, unspecified
[2018-05-03 00:45] LABS: Basophils # 0.1 K/mcL (0.0-0.2); Basophils % 0.6 %; Eosinophils # 0.5 K/mcL (0.0-0.6); Eosinophils % 4.8 %; Hematocrit 41.1 % (35.3-44.9); Hemoglobin 13.4 g/dL (11.5-15.4); Immature Granulocytes % 0.4 % (0-4); Lymphocytes # 2.2 K/mcL (0.6-4.6); Lymphocytes % 19.6 %; Mean Corpuscular HGB Conc 32.6 g/dL (31.6-35.5); Mean Corpuscular Hemoglobin 28.2 pg (28.0-33.3); Mean Corpuscular Volume 86.3 fL (83.0-100.0); Mean Platelet Volume 12.9 fL (9.4-12.4); Monocytes % 8.6 %; Neutrophils # 7.5 K/mcL (1.6-8.9); Platelet Count 226 K/mcL (140-400); Red Blood Count 4.76 M/mcL (3.82-4.97); Red Cell Distribution Width 13.8 % (11.5-14.5)
[2018-05-03 00:51] LABS: Calcium 8.6 mg/dL (8.6-10.3); Potassium 3.5 mEq/L (3.5-5.1)
[2018-05-03] MEDS: niCARdipine 40 MG/200 ML MLS IVC SCH ×4 (01:34→21:44)
[2018-05-03] MEDS: amLODIPine 5 MG TABLET PO SCH (08:35)
[2018-05-03] MEDS: Aspirin Enteric Coated 81 MG Tablet PO SCH (08:35)
--- NOTE | 2018-05-03 08:53 | Electrocardiograph Report ---
[place] [id number] Test Date: 2018-05-01 Pat Name: Veronica Kohler Department: [facility] Room: 2N14 Gender: F Human Service Specialist: : [id number] Requested By: Kristie Doty Order Number: [id number] Reading MD: Rico Dasilva Measurements Intervals Nelson Rate: 85 P: 63 ND: 204 QRS: -13 QRSD: 92 T: 117 QT: 407 QTc: 484 Interpretive Statements Sinus rhythm Multiple ventricular premature complexes Possible anterior infarct, old Left ventricular hypertrophy with ST-T changes Electronically Signed On 05-03-2018 8:51:54 EDT by Rico Dasilva
[2018-05-03] MEDS ORDERED: 0.9 % Sodium Chloride 250 ML IVC ONE (09:34)
--- NOTE | 2018-05-03 10:18 | Cardiology Progress Note ---
Date of Encounter: 05/03/18 Time of Encounter: 09:00 Assessment and Plan (1) Atrial fibrillation Current Visit: Yes Status: Acute Telemetry demonstrates atrial fibrillation which is a new diagnosis for the patient. We briefly discussed this. Suspect this is in part due to age and structural heart disease. However, cannot rule out CAD. Recommend continuing AVN blockers at this time. Have considered LHC due to elevated troponins but waiting for improvement in renal function. She is on heparin gtt. Anticoagulation recommendations to follow decision pending cath (CHADSVASC 4). Qualifiers: Atrial fibrillation type: unspecified Qualified Code(s): I48.91 - Unspecified atrial fibrillation (2) Hypertensive emergency Current Visit: Yes Status: Acute Blood pressure better controlled. Now on metoprolol, norvasc and nicardipine drip which should be titrated down. Will defer BP management to primary team. (3) Elevated troponin Current Visit: Yes Status: Acute Recommend continue to trend troponins for downtrend. Echo returned demonstrating normal LVEF without wall motion abnormalities. Troponin may be in part due to hypertensive urgency. However, she does have risk factors for CVD and have discussed LHC. However, we are waiting for renal function to improve. Would appreciate a Nephrology consultation. Continue heparin gtt, asa , statin, BB. Patient chest pain free. Discussion w patient/family: The assessment and plan as outlined above was discussed with the patient and/or family members who expressed understanding and agreement. All questions were answered. Thank you for involving us in the care of your patient. Please call with any questions. Subjective Principal diagnosis: Elevated Troponin Interval history: Patient resting in bed comfortably in NAD. Has no new complaints this morning. Denies chest pain overnight. No palpitations. Objective Vital Signs, Last 4 Hours Temp Pulse Resp BP Pulse Ox 05/03/18 08:00 97.9 F 69 16 149/54 96 General: Conversant, No Apparent Distress HEENT: Mucus Membranes Moist Neck: No JVD Cardiac: No Murmur, Other (irregularly irregular) Lungs: Normal Breath Sounds Neuro: Alert and responsive, No focal deficits noted Abdomen: Soft, Non-Tender, Other (bowel sounds present) Extremities: Other (no significant LE edema) Results 05/03/18 00:16 05/03/18 00:16 Lab Results 05/02/18 05/02/18 05/02/18 11:38 11:38 11:54 WBC 10.8 Hgb 14.7 Hct 45.0 H Plt Count 224 INR 1.2 Sodium Potassium Chloride Carbon Dioxide BUN Creatinine Glucose Calcium Troponin I 1.23 H* 05/03/18 05/03/18 00:16 00:16 WBC 11.3 H Hgb 13.4 Hct 41.1 Plt Count 226 INR Sodium 134 L Potassium 3.5 Chloride 110 H Carbon Dioxide 23 BUN 40 H Creatinine 2.21 H Glucose 125 H Calcium 8.6 Troponin I - Imaging and Cardiology Echo: report reviewed, image reviewed - EKG Interpretation EKG results cardiology: other (telemetry demonstrates average HR 70's, atrial fibrillation noted) - VTE Documentation of Mechanical Device: Intermittent pneumatic compression device Consult Discharge Plan - Plan Referrals: Debbie Keith CNP [Partnered Physician] - (Office will call patient at home with follow up appointment) Rosetta Esparza CNP [Advanced Practice Nurse] - 05/08/18 9:45 am (Please arrive 30 minutes early to fill out paper work. Take with you your ins. card, Picture ID, all medications in the bottles including over the counter meds. This office does not give out controlled meds. If you need to cancel please call 24 hour before your appointment at [phone]. This is located in the medical office building [address].)
--- NOTE | 2018-05-03 10:27 | Internal Med Progress Note ---
Hospitalist Progress Note - Encounter Date of Encounter: 05/03/18 Time of Encounter: 09:10 - Subjective Interval History: 83 F admitted with HTN Emergency with elevated troponin,LEXIE, suspect CKD, CHF with pulm edema, hypoxia troponin continued to up-trend and cardiology was consulted Seen and examined at bedside She remains with poor insight Renal USS showed urinary retention-Finley and strict I and Os ordered this a.m Renal function continues to be worse, nephrology eval is pending, has been requested ECHO noted for normal EF, severe concentric LVH, moderate diastolic dysfunction - Exam Vitals: Temp Pulse Resp BP Pulse Ox 97.9 F 69 16 149/54 96 05/03/18 08:00 05/03/18 08:00 05/03/18 08:00 05/03/18 08:00 05/03/18 08:00 Exam: General: Resting comfortably, in no acute distress, AAOx3, pleasant HEENT: Normocephalic, atraumatic, EOMI, PERRL, mucus membranes moist. Neck soft , supple, trachea midline, no cervical lymphadenopathy. Cardio: Mild JVD present. Regularly irregular rate, no murmurs, rubs or gallops. Normal S1, S2. No carotid bruits. Pulmonary: No wheezes, rales or rhonchi. No accessory respiratory muscle use. Abdomen: Soft, non tender, non distended, normal bowel sounds, no guarding, rebound or rigidity. No CVA or suprapubic tenderness. Extremities: Radial and dorsal pedis pulses 2+ and symmetrical, normal capillary refill, no clubbing. No peripheral edema or calf tenderness. Neuro: CN 2-12 intact, no focal deficits. Psych: Normal mood and affect, answers questions appropriately - Assessment and Plan (1) Urinary retention Current Visit: Yes Status: Acute Assessment and Plan: Bladder scan showed post-void residual of 186cc Renal function continued to worsen Place Finley and strict I and Os Continue tamsulosin (2) CKD (chronic kidney disease) Current Visit: Yes Status: Suspected Assessment and Plan: Suspected Patient with chronically uncontrolled HTN Elevatd Mag and PHos on arrival UA noted for proteinuria Nephrology consulted, continue to monitor, avoid nephrotoxins (3) Acute kidney failure Current Visit: Yes Status: Acute Assessment and Plan: On top of suspected CKD Receievd two doses of lasix on arrival due to pulm edema , CHF and hypoxia Lasix held Give gentle hydration-250cc Place Finley, I and Os, avoid nephrotoxins Renal eval is pending (4) Elevated troponin Current Visit: Yes Status: Acute Assessment and Plan: Type II ischemia likely due to demand from HTN emergency ECHO noted, EF preserved Also has Afib on tele Continue heparin infusion, monitor PTT, continue BB, continue ASA and Lipitor For LHC when kidney function improves Cardiology is following (5) Hypertensive emergency Current Visit: Yes Status: Acute Assessment and Plan: Continue nicardipine, goal is to wean off Continue amlodipine Continue BB (6) New onset of congestive heart failure Current Visit: Yes Status: Acute Assessment and Plan: Lasix held due to ELXIE CHFpEF, moderate LVDD on ECHO Continue O2 , continue BB, (7) Hypoxia Current Visit: Yes Status: Acute Assessment and Plan: CXR with pulm edema on admission Continue O2 supplement - Time Spent with Patient Total time spent is greater than 50% in coordination of care (as documented) at patient's floor/unit and/or counseling patient: Internal Medicine: Result - Labs CBC & Chem 7: 05/03/18 00:16 05/03/18 00:16 Labs: Short CBC 05/02/18 05/03/18 Range/Units 11:38 00:16 WBC 10.8 11.3 H (4.3-11.1) K/mcL Hgb 14.7 13.4 (11.5-15.4) g/dL Hct 45.0 H 41.1 (35.3-44.9) % Plt Count 224 226 (140-400) K/mcL Neutrophils # 7.5 (1.6-8.9) K/mcL BMP 05/03/18 00:16 Sodium 134 L Potassium 3.5 Chloride 110 H Carbon Dioxide 23 BUN 40 H Creatinine 2.21 H Glucose 125 H Calcium 8.6 Cardiac Enzymes 05/02/18 Range/Units 11:54 Troponin I 1.23 H* (< 0.04) ng/mL - ABG Interpretation ABG results: PT/INR, D-dimer PT 13.5 Seconds (9.4-12.1) H 05/02/18 11:38 - Impressions Impressions Echocardiogram 05/02/18 17:32 Impressions: Normal LV chamber size and systolic function, LVEF 55%. Severe concentric LVH, moderate diastolic dysfunction. Normal RV size and function. Moderate LA dilatation, mild RA dilatation Mild MR, TR and AR. Low CVP, mild pulmonary hypertension, RVSP 46 mmHg. Small posterior pericardial effusion without tamponade physiology Moderate size pleural effusion Left Ventricular Wall Motion: Rest Echo Findings All wall segments showed normal motion. Findings: Study Quality * Technically adequate exam. ECG Findings * Normal sinus rhythm. Left Ventricle * LVEF 60%. * Severe concentric left ventricular hypertrophy. Moderate abnormal diastolic sfunction, type II. Aorta * Normally sized aortic root. Pericardium * There is a small pericardial effusion present, 7mm posteriorly. No evidence of tamponade. Tricuspid Valve * Mild tricuspid regurgitation. * Estimated RVSP is 46mmHg. * Estimated RA pressure is 5 mmHg. Mitral Valve * Trace mitral regurgitation. Right Ventricle * Normal right ventricular structure and function. Right Atrium * Mildly dilated right atrium. Aortic Valve * Trileaflet aortic valve. * No aortic stenosis. * Mild aortic regurgitation. Left Atrium * Moderately dilated left atrium. Pleural Effusion * Moderate pleural effusion. IVC * Normal IVC dimensions and inspiratory collapse. Pulmonic Valve * Normal pulmonic valve structure and function. - VTE Documentation of Mechanical Device: Intermittent pneumatic compression device Consult Discharge Plan - Plan Referrals: Debbie Keith CNP [Partnered Physician] - (Office will call patient at home with follow up appointment) Rosetta Esparza CNP [Advanced Practice Nurse] - 05/08/18 9:45 am (Please arrive 30 minutes early to fill out paper work. Take with you your ins. card, Picture ID, all medications in the bottles including over the counter meds. This office does not give out controlled meds. If you need to cancel please call 24 hour before your appointment at [phone]. This is located in the medical office building [address].) (2) CKD (chronic kidney disease) Qualifiers: Chronic kidney disease stage: unspecified stage Qualified Code(s): N18.9 - Chronic kidney disease, unspecified (3) Acute kidney failure Qualifiers: Acute renal failure type: unspecified Qualified Code(s): N17.9 - Acute kidney failure, unspecified
--- NOTE | 2018-05-03 11:43 | Nephrology Consult Note ---
Date of Encounter: 05/02/18 Time of Encounter: 15:00 Assessment and Plan (1) Acute kidney failure Status: Resolved Patient with acute kidney injury of unclear etiology. Could be secondary to control of her blood pressure versus other. Patient has a history of taking NSAIDs, but states she only took them once a week. Baseline renal function is unknown, but with echogenicity of the cortex seen on ultrasound in context with a history of uncontrolled hypertension indicates she likely had renal dysfunction prior to this insult. Adjust medications for renal function. Avoid nephrotoxins. Rate of rise of her creatinine is starting to slow. Monitor urine output. Qualifiers: Acute renal failure type: with acute tubular necrosis Qualified Code(s): N17.0 - Acute kidney failure with tubular necrosis (2) Hypertensive emergency Status: Resolved Patient with uncontrolled blood pressure who states she has not been on blood pressure medication in quite some time. Unable to use diuretics or TONIA-I/ARB secondary to renal dysfunction. Consider adding oral vasodilator such as hydralazine to help wean off nicardipine. History of Present Illness - Reason for Consult Consult date: 05/02/18 accelerated hypertension - Chief Complaint LEXIE - History of Present Illness Patient is an 83 yo woman with a history of hypertension who has been nonadherant with medications presents with uncontrolled hypertension and acute kidney injury. Past Med Surg Social Fam HX - Past Medical History Medical history: hypertension - Past Surgical History Surgical History: non-contributory, cholecystectomy Additional surgical history: Bilateral tubal ligation - Social History Smoking Status: Never smoker Smokeless Tobacco Status: No Alcohol use: none Drug use: none Medications and Allergies Amlodipine Besylate 10 mg PO DAILY #30 tablet 05/10/18 [Rx] Aspirin Enteric Coated [Aspirin EC] 81 mg PO DAILY tablet. 05/10/18 [Rx] Atorvastatin [Lipitor] 20 mg PO HS #30 tablet 05/10/18 [Rx] Furosemide [Lasix] 40 mg PO DAILY #30 tablet 05/10/18 [Rx] Metoprolol [Lopressor] 50 mg PO BID #60 tablet 05/10/18 [Rx] Warfarin [Coumadin] 2.5 mg PO 1800 #30 tablet 05/10/18 [Rx] hydrALAZINE [HydrALAZINE] 50 mg PO Q8HR #180 tablet 05/10/18 [Rx] 3 Allergy/AdvReac Type Severity Reaction Status Date / Time No Known Allergies Allergy Verified 05/01/18 10:18 Review of Systems All Systems: reviewed and no additional remarkable complaints except as stated Exam - Vital Signs Vital signs: Initial Vital Signs Temp Pulse Resp BP Pulse Ox 98.4 F 84 20 184/110 97 05/01/18 11:36 05/01/18 11:36 05/01/18 11:36 05/01/18 11:36 05/01/18 11:36 Vital Signs - Last 8 Hours Temp Pulse Resp BP Pulse Ox 05/03/18 11:25 97.8 F 60 16 125/57 95 05/03/18 08:35 97.9 F 69 16 149/54 96 05/03/18 08:00 97.9 F 69 16 149/54 96 05/03/18 06:00 63 139/50 05/03/18 04:24 97.8 F 67 16 148/57 91 Intake and Output 05/02/18 05/03/18 05/03/18 23:59 07:59 15:59 Intake Total 552 / 552 503 / 503 200 / 200 Output Total 250 / 250 200 / 200 100 / 100 Balance 302 / 302 303 / 303 100 / 100 Intake: IV Fluids 432 / 432 503 / 503 200 / 200 Heparin 25,000 UNIT/500 ML D5W 102 / 102 103 / 103 25,000 unit In 500 ml @ 12 UNIT /KG/HR 15.785 mls/hr IVC .Q24H JERI Rx#:[id number] Cardene Premix 40mg/200ml 40 mg 330 / 330 400 / 400 200 / 200 In 200 ml @ 5 MG/HR 25 mls/hr IVC .Q8H JERI Rx#:[id number] Oral 120 / 120 0 / 0 Output: Urine 250 / 250 200 / 200 100 / 100 Other: Meal Dinner npo Percent of Meal Consumed 60% Weight 73.754 kg Patient Weight 05/03/18 23:59 Weight 73.754 kg - General Appearance General appearance: well-developed, well-nourished EENT: ATNC Respiratory: course breath sounds Neurologic: alert and oriented x3 Psychiatric: mood/affect appropriate Results - Lab Results 05/10/18 04:47 05/10/18 04:47 Most recent lab results Calcium 8.6 mg/dL (8.6-10.3) 05/03/18 00:16 Phosphorus 4.7 mg/dL (2.7-4.5) H 05/02/18 04:25 Magnesium 2.4 mg/dL (1.6-2.6) 05/02/18 04:25 Urine Creatinine 56 mg/dL 05/01/18 21:31 Urine Sodium 67.3 mEq/L 05/01/18 21:31 Consult Discharge Plan - Plan Instructions: Metoprolol (By mouth), Furosemide (By mouth), Warfarin (By mouth) , Hydralazine (By mouth), Amlodipine (By mouth), Atorvastatin (By mouth), Heart Failure (DC) Additional Instructions: FOLLOW UP WITH [facility] ON 2017 AT 9:00AM. Referrals: Debbie Keith CNP [Partnered Physician] - (Office will call patient at home with follow up appointment) Olimpia Fletcher [Resident] - 05/14/18 4:00 pm (Scheduled by Dr. Fletcher) Rosetta Esparza CNP [Advanced Practice Nurse] - 05/13/18 3:00 pm (Please arrive 30 minutes early to fill out paper work. Take with you your ins. card, Picture ID, all medications in the bottles including over the counter meds. This office does not give out controlled meds. If you need to cancel please call 24 hour before your appointment at [phone]. This is located in the medical office building [address]. Please have your INR drawn before this appointment and sent to Rosetta Esparza so she can evaluate your coumadin level.) Prescriptions: hydrALAZINE [HydrALAZINE] 50 mg PO Q8HR #180 tablet Amlodipine Besylate 10 mg PO DAILY #30 tablet Atorvastatin [Lipitor] 20 mg PO HS #30 tablet Furosemide [Lasix] 40 mg PO DAILY #30 tablet Metoprolol [Lopressor] 50 mg PO BID #60 tablet Warfarin [Coumadin] 2.5 mg PO 1800 #30 tablet
--- NOTE | 2018-05-03 11:43 | Nephrology Progress Note ---
Date of Encounter: 05/04/18 Time of Encounter: 11:43 - Assessment and Plan (1) Acute kidney failure Current Visit: Yes Status: Acute Patient with acute kidney injury of unclear etiology. Could be secondary to control of her blood pressure versus other. Patient has a history of taking NSAIDs, but states she only took them once a week. Baseline renal function is unknown, but with echogenicity of the cortex seen on ultrasound in context with a history of uncontrolled hypertension indicates she likely had renal dysfunction prior to this insult. Adjust medications for renal function. Avoid nephrotoxins. (2) Hypertensive emergency Current Visit: Yes Status: Acute Patient with uncontrolled blood pressure who states she has not been on blood pressure medication in quite some time. Unable to use diuretics or TONIA-I/ARB secondary to renal dysfunction. Consider adding oral vasodilator such as hydralazine to help wean off nicardipine. Subjective Principal diagnosis: Elevated Troponin Interval history: Patient seen and evaluated. She feels better today. She has no new complaint. Objective - Vital Signs Vital signs: Vital Signs Temp Pulse Resp BP Pulse Ox 05/03/18 11:25 97.8 F 60 16 125/57 95 05/03/18 08:35 97.9 F 69 16 149/54 96 05/03/18 08:00 97.9 F 69 16 149/54 96 05/03/18 06:00 63 139/50 05/03/18 04:24 97.8 F 67 16 148/57 91 05/03/18 02:00 61 142/53 05/02/18 23:11 98.3 F 60 16 129/57 96 05/02/18 20:00 78 148/61 05/02/18 18:37 98.1 F 82 16 154/56 92 05/02/18 17:18 83 20 154/72 94 05/02/18 15:44 74 05/02/18 15:40 97.7 F 72 18 149/61 94 05/02/18 13:58 75 20 141/53 95 05/02/18 13:00 74 20 150/76 94 Intake and Output 05/02/18 05/03/18 05/03/18 23:59 07:59 15:59 Intake Total 552 / 552 503 / 503 200 / 200 Output Total 250 / 250 200 / 200 100 / 100 Balance 302 / 302 303 / 303 100 / 100 Intake: IV Fluids 432 / 432 503 / 503 200 / 200 Heparin 25,000 UNIT/500 ML D5W 102 / 102 103 / 103 25,000 unit In 500 ml @ 12 UNIT /KG/HR 15.785 mls/hr IVC .Q24H JERI Rx#:[id number] Cardene Premix 40mg/200ml 40 mg 330 / 330 400 / 400 200 / 200 In 200 ml @ 5 MG/HR 25 mls/hr IVC .Q8H JERI Rx#:[id number] Oral 120 / 120 0 / 0 Output: Urine 250 / 250 200 / 200 100 / 100 Other: Meal Dinner npo Percent of Meal Consumed 60% Weight 73.754 kg Patient Weight 05/03/18 23:59 Weight 73.754 kg - General Appearance General appearance: Present: well-developed, well-nourished EENT: Present: ATNC Neck: Present: supple Respiratory: Present: clear Cardiology: Present: no edema, regular rate Gastrointestinal: Present: obese Integumentary: Present: warm and dry Neurologic: Present: alert and oriented x3 Psychiatric: Present: mood/affect appropriate - Lab 05/04/18 04:11 05/04/18 04:11 Most recent lab results Calcium 8.6 mg/dL (8.6-10.3) 05/03/18 00:16 Phosphorus 4.7 mg/dL (2.7-4.5) H 05/02/18 04:25 Magnesium 2.4 mg/dL (1.6-2.6) 05/02/18 04:25 Urine Creatinine 56 mg/dL 05/01/18 21:31 Urine Sodium 67.3 mEq/L 05/01/18 21:31 - VTE Documentation of Mechanical Device: Intermittent pneumatic compression device Consult Discharge Plan - Plan Referrals: Debbie Keith CNP [Partnered Physician] - (Office will call patient at home with follow up appointment) Rosetta Esparza CNP [Advanced Practice Nurse] - 05/08/18 9:45 am (Please arrive 30 minutes early to fill out paper work. Take with you your ins. card, Picture ID, all medications in the bottles including over the counter meds. This office does not give out controlled meds. If you need to cancel please call 24 hour before your appointment at [phone]. This is located in the medical office building [address].)
[2018-05-03] MEDS: Heparin 25,000 UNIT/500 ML D5W 25,000 UNIT/500 ML BAG IVC SCH (16:20)
[2018-05-04 05:03] LABS: Basophils % 0.4 %; Eosinophils # 0.2 K/mcL (0.0-0.6); Eosinophils % 2.2 %; Immature Granulocytes % 0.2 % (0-4); Lymphocytes # 2.3 K/mcL (0.6-4.6); Lymphocytes % 22.9 %; Mean Corpuscular HGB Conc 32.4 g/dL (31.6-35.5); Mean Corpuscular Hemoglobin 27.4 pg (28.0-33.3); Mean Corpuscular Volume 84.5 fL (83.0-100.0); Mean Platelet Volume 12.9 fL (9.4-12.4); Monocytes # 0.9 K/mcL (0.0-1.3); Monocytes % 8.9 %; Neutrophils # 6.5 K/mcL (1.6-8.9); Platelet Count 222 K/mcL (140-400); Red Blood Count 4.38 M/mcL (3.82-4.97); Red Cell Distribution Width 13.7 % (11.5-14.5); Segmented Neutrophils % 65.4 %
[2018-05-04 05:23] LABS: Calcium 8.6 mg/dL (8.6-10.3); Potassium 3.5 mEq/L (3.5-5.1)
[2018-05-04] MEDS: niCARdipine 40 MG/200 ML MLS IVC SCH (06:27)
[2018-05-04] MEDS ORDERED: 0.9 % Sodium Chloride 1,000 ML IVC SCH (08:00)
[2018-05-04] MEDS: amLODIPine 5 MG TABLET PO SCH (08:26)
[2018-05-04] MEDS: Aspirin Enteric Coated 81 MG Tablet PO SCH (08:26)
--- NOTE | 2018-05-04 09:25 | Nephrology Progress Note ---
Date of Encounter: 05/04/18 Time of Encounter: 09:25 - Assessment and Plan (1) Acute kidney failure Current Visit: Yes Status: Acute Patient with acute kidney injury of unclear etiology. Could be secondary to control of her blood pressure versus other. Patient has a history of taking NSAIDs, but states she only took them once a week. Baseline renal function is unknown, but with echogenicity of the cortex seen on ultrasound in context with a history of uncontrolled hypertension indicates she likely had renal dysfunction prior to this insult. Adjust medications for renal function. Avoid nephrotoxins. Rate of rise of her creatinine is starting to slow. Monitor urine output. Qualifiers: Acute renal failure type: unspecified Qualified Code(s): N17.9 - Acute kidney failure, unspecified (2) Hypertensive emergency Current Visit: Yes Status: Acute Patient with uncontrolled blood pressure who states she has not been on blood pressure medication in quite some time. Unable to use diuretics or TONIA-I/ARB secondary to renal dysfunction. Consider adding oral vasodilator such as hydralazine to help wean off nicardipine. Subjective Principal diagnosis: Elevated Troponin Interval history: Patient seen and evaluated. She feels better today. She has no new complaint. Objective - Vital Signs Vital signs: Vital Signs Temp Pulse Resp BP Pulse Ox 05/04/18 07:32 98.1 F 70 18 161/62 93 05/04/18 05:00 62 150/58 05/04/18 04:56 98 F 58 18 154/56 94 05/04/18 04:00 62 154/56 05/04/18 03:00 65 148/62 05/04/18 02:00 61 134/49 05/04/18 01:00 61 141/56 05/04/18 00:33 98.2 F 60 20 137/50 94 05/04/18 00:00 62 137/50 05/03/18 23:00 59 131/63 05/03/18 19:43 98.1 F 71 18 143/52 94 05/03/18 16:15 98.7 F 72 16 133/59 98 05/03/18 14:00 98.7 F 72 16 133/59 98 05/03/18 12:20 97.8 F 60 16 125/57 95 05/03/18 11:25 97.8 F 60 16 125/57 95 Intake and Output 05/03/18 05/04/1818 23:59 07:59 15:59 Intake Total 295 / 295 200 / 200 50 / 50 Output Total 200 / 200 Balance 295 / 295 0 / 0 50 / 50 Intake: IV Fluids 295 / 295 200 / 200 50 / 50 Heparin 25,000 UNIT/500 ML D5W 295 / 295 25,000 unit In 500 ml @ 12 UNIT /KG/HR 15.785 mls/hr IVC .Q24H JERI Rx#:[id number] Cardene Premix 40mg/200ml 40 mg 200 / 200 50 / 50 In 200 ml @ 5 MG/HR 25 mls/hr IVC .Q8H JERI Rx#:[id number] Output: Catheter 200 / 200 Other: Weight 73.2 kg Patient Weight 05/04/18 23:59 Weight 73.2 kg - General Appearance General appearance: Present: well-developed, well-nourished EENT: Present: ATNC Neck: Present: supple Cardiology: Present: regular rate - Lab 05/04/18 04:11 05/04/18 04:11 Most recent lab results Calcium 8.6 mg/dL (8.6-10.3) 05/04/18 04:11 Phosphorus 4.7 mg/dL (2.7-4.5) H 05/02/18 04:25 Magnesium 2.4 mg/dL (1.6-2.6) 05/02/18 04:25 Urine Creatinine 56 mg/dL 05/01/18 21:31 Urine Sodium 67.3 mEq/L 05/01/18 21:31 - VTE Documentation of Mechanical Device: Intermittent pneumatic compression device Consult Discharge Plan - Plan Referrals: Debbie Keith CNP [Partnered Physician] - (Office will call patient at home with follow up appointment) Rosetta Esparza CNP [Advanced Practice Nurse] - 05/08/18 9:45 am (Please arrive 30 minutes early to fill out paper work. Take with you your ins. card, Picture ID, all medications in the bottles including over the counter meds. This office does not give out controlled meds. If you need to cancel please call 24 hour before your appointment at [phone]. This is located in the medical office building [address].)
--- NOTE | 2018-05-04 10:40 | Internal Med Progress Note ---
Hospitalist Progress Note - Encounter Date of Encounter: 05/04/18 Time of Encounter: 10:40 - Subjective Interval History: 83 F admitted with HTN Emergency with elevated troponin,LEXIE, suspect CKD, CHF with pulm edema, hypoxia Seen and examined at bedside she denies new complains Renal USS showed urinary retention-Finley and strict I and Os ordered 05/03, Urine output noted Renal function continues to be worse, nephrology eval is noted, IVF hydration increased Patient continued to deny CP, SOB, N/V/D She is comfortable on 2 L O2 ECHO noted for normal EF, severe concentric LVH, moderate diastolic dysfunction Patient again educated about her diagnoses and plan of care - Exam Vitals: Temp Pulse Resp BP Pulse Ox 98.1 F 70 18 161/62 93 05/04/18 07:32 05/04/18 07:32 05/04/18 07:32 05/04/18 07:32 05/04/18 07:32 Exam: General: Resting comfortably, in no acute distress, AAOx3, pleasant HEENT: Normocephalic, atraumatic, EOMI, PERRL, mucus membranes moist. Neck soft , supple, trachea midline, no cervical lymphadenopathy. Cardio: NO JVD. Regularly irregular rate, no murmurs, rubs or gallops. Normal S1, S2. No carotid bruits. Pulmonary: CTAB. No wheezes, rales or rhonchi. No accessory respiratory muscle use. Abdomen: Soft, non tender, non distended, normal bowel sounds, no guarding, rebound or rigidity. No CVA or suprapubic tenderness. Extremities: Radial and dorsal pedis pulses 2+ and symmetrical, normal capillary refill, no clubbing. No peripheral edema or calf tenderness. Neuro: CN 2-12 intact, no focal deficits. Psych: Normal mood and affect, answers questions appropriately - Assessment and Plan (1) Urinary retention Current Visit: Yes Status: Acute Assessment and Plan: Bladder scan showed post-void residual of 186cc Renal function continued to worsen Finley placed 05/03 Urine output in the past 24 hrs 300cc Continue strict I and Os Continue tamsulosin (2) CKD (chronic kidney disease) Current Visit: Yes Status: Suspected Assessment and Plan: Suspected Patient with chronically uncontrolled HTN Elevatd Mag and PHos on arrival UA noted for proteinuria Nephrology consulted, continue to monitor, avoid nephrotoxins See LEXIE on CKD for other management (3) Acute kidney failure Current Visit: Yes Status: Acute Assessment and Plan: On top of suspected CKD Received two doses of lasix on arrival due to pulm edema , CHF and hypoxia Lasix held 05/02 IVF at 100cc/hr today 05/04 Renal function continued to worsen Renal input appreciated Continue strict I and Os Avoid nephrotoxins (4) Elevated troponin Current Visit: Yes Status: Acute Assessment and Plan: Type II ischemia likely due to demand from HTN emergency ECHO noted, EF preserved Also has Afib on tele Continue heparin infusion, monitor PTT, continue BB, continue ASA and Lipitor For LHC when kidney function improves Cardiology is following (5) Hypertensive emergency Current Visit: Yes Status: Acute Assessment and Plan: Continue nicardipine, goal is to wean off Continue amlodipine Increase lopressor to 50mg BID No ACEI/ARBs due to LEXIE (6) New onset of congestive heart failure Current Visit: Yes Status: Acute Assessment and Plan: Lasix held due to LEXIE CHFpEF, moderate LVDD on ECHO Continue O2 , continue BB, (7) Hypoxia Current Visit: Yes Status: Acute Assessment and Plan: CXR with pulm edema on admission Continue O2 supplement DVT Prophylaxis: On heparin drip - Time Spent with Patient Total time spent is greater than 50% in coordination of care (as documented) at patient's floor/unit and/or counseling patient: Plan of Care Discussed with: patient Internal Medicine: Result - Labs CBC & Chem 7: 05/04/18 04:11 05/04/18 04:11 Labs: Short CBC 05/04/18 Range/Units 04:11 WBC 10.0 (4.3-11.1) K/mcL Hgb 12.0 (11.5-15.4) g/dL Hct 37.0 (35.3-44.9) % Plt Count 222 (140-400) K/mcL Neutrophils # 6.5 (1.6-8.9) K/mcL BMP 05/04/18 04:11 Sodium 137 Potassium 3.5 Chloride 104 Carbon Dioxide 23 BUN 49 H Creatinine 2.65 H Glucose 113 H Calcium 8.6 Cardiac Enzymes 05/03/18 Range/Units 00:16 Troponin I 0.89 H* (< 0.04) ng/mL - ABG Interpretation ABG results: PT/INR, D-dimer PT 13.5 Seconds (9.4-12.1) H 05/02/18 11:38 - VTE Documentation of Mechanical Device: Intermittent pneumatic compression device Consult Discharge Plan - Plan Referrals: Debbie Keith CNP [Partnered Physician] - (Office will call patient at home with follow up appointment) Rosetta Esparza CNP [Advanced Practice Nurse] - 05/08/18 9:45 am (Please arrive 30 minutes early to fill out paper work. Take with you your ins. card, Picture ID, all medications in the bottles including over the counter meds. This office does not give out controlled meds. If you need to cancel please call 24 hour before your appointment at [phone]. This is located in the medical office building [address].) (2) CKD (chronic kidney disease) Qualifiers: Chronic kidney disease stage: unspecified stage Qualified Code(s): N18.9 - Chronic kidney disease, unspecified (3) Acute kidney failure Qualifiers: Acute renal failure type: unspecified Qualified Code(s): N17.9 - Acute kidney failure, unspecified
[2018-05-05] MEDS: Heparin 25,000 UNIT/500 ML D5W 25,000 UNIT/500 ML BAG IVC SCH
[2018-05-05 05:16] LABS: Basophils # 0.1 K/mcL (0.0-0.2); Basophils % 0.6 %; Eosinophils # 0.2 K/mcL (0.0-0.6); Hematocrit 36.8 % (35.3-44.9); Hemoglobin 12.1 g/dL (11.5-15.4); Immature Granulocytes % 0.3 % (0-4); Lymphocytes # 1.9 K/mcL (0.6-4.6); Lymphocytes % 24.6 %; Mean Corpuscular HGB Conc 32.9 g/dL (31.6-35.5); Mean Corpuscular Hemoglobin 27.6 pg (28.0-33.3); Mean Platelet Volume 12.5 fL (9.4-12.4); Monocytes # 0.8 K/mcL (0.0-1.3); Monocytes % 9.9 %; Neutrophils # 4.8 K/mcL (1.6-8.9); Platelet Count 191 K/mcL (140-400); Red Blood Count 4.38 M/mcL (3.82-4.97); Red Cell Distribution Width 13.8 % (11.5-14.5); Segmented Neutrophils % 61.6 %
[2018-05-05 05:34] LABS: Calcium 8.8 mg/dL (8.6-10.3); Potassium 3.3 mEq/L (3.5-5.1)
[2018-05-05] MEDS ORDERED: 0.9 % Sodium Chloride 1,000 ML IVC SCH (08:15)
[2018-05-05] MEDS: amLODIPine 5 MG TABLET PO SCH (08:47)
[2018-05-05] MEDS: Aspirin Enteric Coated 81 MG Tablet PO SCH (08:47)
--- NOTE | 2018-05-05 08:47 | Internal Med Progress Note ---
<Olimpia Fletcher N - Last Filed: 05/05/18 17:40> Hospitalist Progress Note - Encounter Date of Encounter: 05/05/18 Time of Encounter: 08:47 - Subjective Interval History: Ms. Kohler is an 83-year old female who presented to the ED on 05/01/2018 complaining of increasing SOB and new-onset orthopnea x 7 days. She was admitted for nevaluation and management of new-onset CHF. Her past medical history is significant for uncontrolled hypertension, with systolic BP reportedly in the 200s. She does not currently have a PCP. On assessment today, she denies any complaints and reports that she feels like she is pretty much at baseline. She denies chest pain, shortness of breath, or edema. - Exam Vitals: Temp Pulse Resp BP Pulse Ox 97.7 F 67 20 164/69 91 05/05/18 07:39 05/05/18 07:39 05/05/18 07:39 05/05/18 07:39 05/05/18 07:39 Exam: * General: Pleasant elderly female in no acute distress. She is resting in bed comfortably. She is conversational and responds appropriately to questions. * HEENT: Atraumatic and normocephalic. Nasal canula in place. * Cardiovascular: Regular rate and rhythm. S1 and S2 present. No murmurs, rubs, or gallops. * Respiratory: Decreased inspiratory effort. Clear breath sounds bilaterally. * Gastrointestinal: Active bowel sounds x 4 quadrants. Abdomen is soft and nontender with mild distention. * Extremities: No clubbing, cyanosis, or edema present. * Neurologic: Patient moves extremities spontaneously. No apparent focal deficits. - Assessment and Plan (1) New onset of congestive heart failure Current Visit: Yes Status: Acute Assessment and Plan: Patient presented with worsening shortness of breath and new-onset orthopnea x 7 days. 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 Chest xray revealed diffuse prominent interstitial markings and bilateral pleural effusions, which was suspected to be sequela of congestive failure. She was started on antihypertensive therapy with some improvement in blood pressure. An attempt was made for diuresis with lasix 20mg daily; however, patient developed LEXIE, necessitating discontinuation of that therapy. On exam today, patient was resting comfortably and denied any shortness of breath. Patient is volume overloaded, with a cumulative I/O for this admission of 6260/1975 (+4285mL). Her weight has increased throughout this admission, with a gain of 4.1kg since yesterday (weight 73.2kg yesterday, 77.3kg today). In light of her LEXIE, aggressive diuresis is ill-advised. Will continue to monitor clinically, with strict I/Os and 1.5mL daily fluid restriction. (2) Atrial fibrillation Current Visit: Yes Status: Acute Assessment and Plan: Patient demonstrated atrial fibrillation on telemetry. Cardiology consult recommended consideration of LHC, particularly in light of the patient's elevated troponin this admission (0.10, 1.23, 0.89); however, LHC has been postponed in light of LEXIE and decreased renal function. Patient is currently in normal sinus rhythm and is rate controlled. Plan to continue monitoring. She was initiallty anticoagulated with heparin, which was discontinued today. Anticoagulation therapy with warfarin initiated, with pharmacy to dose to therapeutic INR. Patient will follow up with cardiology as an outpatient after discharge for potential LHC and further management of this problem. (3) Acute kidney failure Current Visit: Yes Status: Acute Assessment and Plan: Patient developed LEXIE after diuretic administration. Renal ultrasound demonstrated no hydronephrosis. She is currently receiving IV fluids at 100mL/ hr. Kidneys demonstrated some improvement today, with creatinine of 2.45 (down from 2.65 yesterday). Plan to continue gentle hydration and close monitoring of renal function. (4) CKD (chronic kidney disease) Current Visit: Yes Status: Suspected Assessment and Plan: Suspect CKD in light of patient's uncontrolled hypertension and signs of end- organ damage at the time of admission. Will continue to monitor. Patient would benefit from outpatient followup by PCP for further evaluation and determination of baseline renal function. (5) Urinary retention Current Visit: Yes Status: Acute Assessment and Plan: Patient has a history of urinary retention managed with flomax 0.4mg daily. Ultrasound revealed post-void residual volume of 186mL. Will continue flomax with monitoring of daily urine production. (6) Hypoxia Current Visit: Yes Status: Acute Assessment and Plan: Patient's shortness of breath has improved, though she is still receiving 2L supplemental oxygen via nasal canula with oxygen saturation at 93%. She has not ambulated. Plan to continue oxygen therapy and begin ambulation tomorrow with nursing assistance. Patient will be assessed for home oxygen needs prior to discharge. (7) Uncontrolled hypertension Current Visit: Yes Status: Acute Assessment and Plan: At the time of presentation to the ED, patient had elevated BP of 184/110. She reported a history of uncontrolled hypertension, with reported systolic BP in the 200s. She was started on amlodipine 10mg daily and metoprolol 50mg BID. Morning blood pressure today was 164/69; hydralazine 10mg Q8H TID added for better BP control. At the time of admission, patient did demonstrate signs of end-organ damage, with elevated troponin and serum creatinine. Will continue current antihypertensive therapy and monitoring of laboratory studies. - Time Spent with Patient Total time spent is greater than 50% in coordination of care (as documented) at patient's floor/unit and/or counseling patient: Internal Medicine: Result - Labs CBC & Chem 7: 05/05/18 04:59 05/05/18 04:59 Labs: Short CBC 05/05/18 Range/Units 04:59 WBC 7.7 (4.3-11.1) K/mcL Hgb 12.1 (11.5-15.4) g/dL Hct 36.8 (35.3-44.9) % Plt Count 191 (140-400) K/mcL Neutrophils # 4.8 (1.6-8.9) K/mcL BMP 05/05/18 04:59 Sodium 137 Potassium 3.3 L Chloride 104 Carbon Dioxide 24 BUN 47 H Creatinine 2.45 H Glucose 107 H Calcium 8.8 - ABG Interpretation ABG results: PT/INR, D-dimer PT 13.5 Seconds (9.4-12.1) H 05/02/18 11:38 - VTE Documentation of Mechanical Device: Intermittent pneumatic compression device Consult Discharge Plan - Plan Referrals: Debbie Keith CNP [Partnered Physician] - (Office will call patient at home with follow up appointment) Rosetta Esparza CNP [Advanced Practice Nurse] - 05/08/18 9:45 am (Please arrive 30 minutes early to fill out paper work. Take with you your ins. card, Picture ID, all medications in the bottles including over the counter meds. This office does not give out controlled meds. If you need to cancel please call 24 hour before your appointment at [phone]. This is located in the medical office building [address].) <RandellMaster T - Last Filed: 05/05/18 18:30> Hospitalist Progress Note - Encounter Date of Encounter: 05/05/18 - Exam Vitals: Temp Pulse Resp BP Pulse Ox 98.0 F 60 18 151/63 93 05/05/18 11:52 05/05/18 11:52 05/05/18 11:52 05/05/18 11:52 05/05/18 11:52 - Assessment and Plan (1) New onset of congestive heart failure Current Visit: Yes Status: Acute (2) Acute kidney failure Current Visit: Yes Status: Acute (3) Atrial fibrillation Current Visit: Yes Status: Acute (4) Urinary retention Current Visit: Yes Status: Acute (5) CKD (chronic kidney disease) Current Visit: Yes Status: Suspected (6) Hypoxia Current Visit: Yes Status: Acute (7) Uncontrolled hypertension Current Visit: Yes Status: Acute - Time Spent with Patient Total time spent is greater than 50% in coordination of care (as documented) at patient's floor/unit and/or counseling patient: Internal Medicine: Result - Labs CBC & Chem 7: 05/05/18 04:59 05/05/18 04:59 Labs: Short CBC 05/05/18 Range/Units 04:59 WBC 7.7 (4.3-11.1) K/mcL Hgb 12.1 (11.5-15.4) g/dL Hct 36.8 (35.3-44.9) % Plt Count 191 (140-400) K/mcL Neutrophils # 4.8 (1.6-8.9) K/mcL BMP 05/05/18 04:59 Sodium 137 Potassium 3.3 L Chloride 104 Carbon Dioxide 24 BUN 47 H Creatinine 2.45 H Glucose 107 H Calcium 8.8 - ABG Interpretation ABG results: PT/INR, D-dimer PT 13.7 Seconds (9.4-12.1) H 05/05/18 14:38 - Attending Attestation I have personally seen and examined this patient on 05/05/18 and reviewed her chart and labs, including medications, I have discussed plan of care with the resident physician, whose documentation reflect our plan of care. With the additions/exceptions set forth below. 83 F admitted and being managed for hypertensive emergency with acute kidney injury, acute pulmonary edema CHF and type II demand ischemia with elevated troponins. Incidental finding of atrial fibrillation inpatient, patient is on heparin drip. Kidney function continues to worsen, hypoxia is stable on 2 L of nasal cannula at rest. Choice of anticoagulation is warfarin at this time due to renal dysfunction. Cardiology and nephrology following. Rest of details as in the resident physician's documentation <Olimpia Fletcher N - Last Filed: 05/05/18 17:40> (2) Atrial fibrillation Qualifiers: Atrial fibrillation type: unspecified Qualified Code(s): I48.91 - Unspecified atrial fibrillation (3) Acute kidney failure Qualifiers: Acute renal failure type: unspecified Qualified Code(s): N17.9 - Acute kidney failure, unspecified (4) CKD (chronic kidney disease) Qualifiers: Chronic kidney disease stage: unspecified stage Qualified Code(s): N18.9 - Chronic kidney disease, unspecified <Master Mejias T - Last Filed: 05/05/18 18:30> (2) Acute kidney failure Qualifiers: Acute renal failure type: unspecified Qualified Code(s): N17.9 - Acute kidney failure, unspecified (3) Atrial fibrillation Qualifiers: Atrial fibrillation type: unspecified Qualified Code(s): I48.91 - Unspecified atrial fibrillation (5) CKD (chronic kidney disease) Qualifiers: Chronic kidney disease stage: unspecified stage Qualified Code(s): N18.9 - Chronic kidney disease, unspecified
--- NOTE | 2018-05-05 08:49 | Cardiology Progress Note ---
Date of Encounter: 05/05/18 Time of Encounter: 09:30 Assessment and Plan (1) Elevated troponin Current Visit: Yes Status: Acute A: Type II NSTEMI likely, can't r/o underlying CAD. trop down trended with resolution of acute distress. Currently no evidence of ischemia. P: - no LHC now, may consider LHC if evidence of ischemia after LEXIE resolves. Otherwise, ischemia workup as outpatient. - no cardiac rehab needed for type II NSTEMI. (2) Atrial fibrillation Current Visit: Yes Status: Acute A: PAF, currently back to SR with PACs. C score 5. P: - prefer warfarin over NOAC now given age, low eGFR and question of compliance. - if persistent sinus bradycardia on tele, down lopressor to 25 bid Qualifiers: Atrial fibrillation type: unspecified Qualified Code(s): I48.91 - Unspecified atrial fibrillation (3) Hypertensive emergency Current Visit: Yes Status: Acute Blood pressure better controlled. Defer management to primary team. (4) Acute CHF (congestive heart failure) Current Visit: Yes Status: Acute A: HFpEF, ADHF due to hypertensive crisis, close to euvolemia currently P: HTN control per primary team Qualifiers: Heart failure type: diastolic Qualified Code(s): I50.31 - Acute diastolic ( congestive) heart failure (5) Acute kidney failure Current Visit: Yes Status: Acute improving. Renal consult on board Qualifiers: Acute renal failure type: unspecified Qualified Code(s): N17.9 - Acute kidney failure, unspecified Discussion w patient/family: The assessment and plan as outlined above was discussed with the patient and/or family members who expressed understanding and agreement. All questions were answered. Thank you for involving us in the care of your patient. Please call with any questions. Subjective Principal diagnosis: Elevated Troponin Interval history: Pt has no complaints. No cp, dyspnea, palpitations. BP ctr better, Cr 1.5-2.7-2.5, trop peak 1.2 downtrended, BNP down 1800-800. Back to SR on tele On heparin drip. Objective Vital Signs, Last 4 Hours Temp Pulse Resp BP Pulse Ox 05/05/18 07:39 97.7 F 67 20 164/69 91 Other: General: NAD, AAO, cogent HEENT: anicteric Neck: JVP 7-8, no bruits Chest: CTA B/L, no W/R/C Heart: RR, S1/S2, no S3/S4, no M/G/R Abdominal: BS +, soft, ND, NT Peripheral Pulses: radial pulse 2+ B/L, DP 1+ B/L Skin/Extremities: no cyanosis, no LE edema Neurological: grossly non-focal. Results 05/05/18 04:59 05/05/18 04:59 Lab Results 05/05/18 05/05/18 04:59 04:59 WBC 7.7 Hgb 12.1 Hct 36.8 Plt Count 191 Sodium 137 Potassium 3.3 L Chloride 104 Carbon Dioxide 24 BUN 47 H Creatinine 2.45 H Glucose 107 H Calcium 8.8 - Imaging and Cardiology Echo: image reviewed Other Results: Tele SR, rare PVCs - EKG Interpretation EKG results cardiology: personally reviewed (sinus marina with PAC, LVH w/ stain (old)) - VTE Documentation of Mechanical Device: Intermittent pneumatic compression device Consult Discharge Plan - Plan Referrals: Debbie Keith CNP [Partnered Physician] - (Office will call patient at home with follow up appointment) Rosetta Esparza CNP [Advanced Practice Nurse] - 05/08/18 9:45 am (Please arrive 30 minutes early to fill out paper work. Take with you your ins. card, Picture ID, all medications in the bottles including over the counter meds. This office does not give out controlled meds. If you need to cancel please call 24 hour before your appointment at [phone]. This is located in the medical office building [address].)
[2018-05-05 15:02] LABS: INR 1.2; Prothrombin Time 13.7 Seconds (9.4-12.1)
--- NOTE | 2018-05-05 15:14 | Nephrology Progress Note ---
Date of Encounter: 05/05/18 Time of Encounter: 11:25 - Assessment and Plan (1) Acute kidney failure Current Visit: Yes Status: Acute Acute kidney injury, beginning to stabilize Serum creatinine is fallen in comparison to yesterday Patient has made approximately 600 mL of urine in the past 24 hours Suspected etiology of worsened renal function is tight control of blood pressure in hypertensive emergency The patient is now off nicardipine drip and blood pressure remains stable at roughly 160 systolic We recommend maintaining blood pressure at around this is level as kidneys are improving Recommend maintaining current blood pressure medications as they are Hold all nephrotoxic agents as able Qualifiers: Acute renal failure type: unspecified Qualified Code(s): N17.9 - Acute kidney failure, unspecified (2) Hypertensive emergency Current Visit: Yes Status: Acute Hypertensive emergency with elevated troponins and LEXIE Patient's blood pressure is now under better control As above, recommend maintaining blood pressure at current level Subjective Principal diagnosis: Elevated Troponin Interval history: The patient is resting comfortably in bed at time of examination. She is not having any acute complaints today. She is making urine. Objective - Vital Signs Vital signs: Vital Signs Temp Pulse Resp BP Pulse Ox 05/05/18 11:52 98.0 F 60 18 151/63 93 05/05/18 07:39 97.7 F 67 20 164/69 91 05/05/18 03:57 97.9 F 62 18 149/72 90 05/05/18 00:02 98.1 F 62 18 152/65 90 05/04/18 20:00 98.4 F 70 16 170/69 92 05/04/18 16:45 98.4 F 68 16 137/58 93 05/04/18 15:56 98.4 F 68 16 137/58 93 Intake and Output 05/04/18 05/05/18 05/05/18 23:59 07:59 15:59 Intake Total 1240 / 1240 500 / 500 Output Total 150 / 150 600 / 600 800 / 800 Balance 1090 / 1090 -100 / -100 -800 / -800 Intake: IV Fluids 1000 / 1000 500 / 500 0.9 % Sodium Chloride 1,000 ML 1000 / 1000 @ 100 mls/hr IVC .Q10H J[facility]I Rx#: [id number] Heparin 25,000 UNIT/500 ML D5W 500 / 500 25,000 unit In 500 ml @ 12 UNIT /KG/HR 15.785 mls/hr IVC .Q24H J[facility]I Rx#:[id number] Oral 240 / 240 Output: Catheter 150 / 150 600 / 600 800 / 800 Urethral (Finley) 600 / 600 Other: Meal Dinner Percent of Meal Consumed 40% Stool Size Moderate Stool Consistency soft formed Stool Characteristics Normal for Patient Stool Color Brown # Voids 1 # Bowel Movements 0 Weight 77.3 kg Blood Glucose* 99 Patient Weight 05/05/18 23:59 Weight 77.3 kg - General Appearance General appearance: Present: well-developed, well-nourished, appears started age Exam: Gen: Vitals noted. No acute distress. HEENT: Normocephalic, atraumatic Neck: Supple. No adenopathy. Cardiac: RRR, no murmur, +S1/S2 Pulmonary: Diminished in the bases bilaterally with crackles present globally Abdomen: soft, nontender, BS noted, no guarding MSK: ROM intact, no joint swelling noted Extremities: no BLE edema, nontender calf, no cyanosis or clubbing Neuro: A&Ox3, moves all extremities, no focal deficits Psych: Appropriate mood and behavior - Lab 05/05/18 04:59 05/05/18 04:59 Most recent lab results Calcium 8.8 mg/dL (8.6-10.3) 05/05/18 04:59 Phosphorus 4.7 mg/dL (2.7-4.5) H 05/02/18 04:25 Magnesium 2.4 mg/dL (1.6-2.6) 05/02/18 04:25 Urine Creatinine 56 mg/dL 05/01/18 21:31 Urine Sodium 67.3 mEq/L 05/01/18 21:31 - VTE Documentation of Mechanical Device: Intermittent pneumatic compression device Consult Discharge Plan - Plan Referrals: Debbie Keith CNP [Partnered Physician] - (Office will call patient at home with follow up appointment) Rosetta Esparza CNP [Advanced Practice Nurse] - 05/08/18 9:45 am (Please arrive 30 minutes early to fill out paper work. Take with you your ins. card, Picture ID, all medications in the bottles including over the counter meds. This office does not give out controlled meds. If you need to cancel please call 24 hour before your appointment at [phone]. This is located in the medical office building [address].)
[2018-05-05] MEDS: hydrALAZINE 10 MG TABLET PO SCH (15:40)
[2018-05-05] MEDS ORDERED: Warfarin perPT PO PRN (18:00)
[2018-05-05] MEDS ORDERED: *HR* Warfarin 5 MG TABLET PO ONE (18:00)
[2018-05-06] MEDS: hydrALAZINE 10 MG TABLET PO SCH ×3 (00:24→16:40)
[2018-05-06 07:17] LABS: Basophils % 0.5 %; Eosinophils # 0.3 K/mcL (0.0-0.6); Eosinophils % 3.3 %; Hematocrit 39.6 % (35.3-44.9); Hemoglobin 12.8 g/dL (11.5-15.4); Immature Granulocytes % 0.1 % (0-4); Lymphocytes # 1.6 K/mcL (0.6-4.6); Lymphocytes % 20.5 %; Mean Corpuscular HGB Conc 32.3 g/dL (31.6-35.5); Mean Corpuscular Hemoglobin 28.3 pg (28.0-33.3); Mean Corpuscular Volume 87.4 fL (83.0-100.0); Mean Platelet Volume 12.9 fL (9.4-12.4); Monocytes # 0.8 K/mcL (0.0-1.3); Monocytes % 9.8 %; Platelet Count 174 K/mcL (140-400); Red Blood Count 4.53 M/mcL (3.82-4.97); Red Cell Distribution Width 13.8 % (11.5-14.5); Segmented Neutrophils % 65.8 %
[2018-05-06 07:22] LABS: INR 1.2; Prothrombin Time 13.5 Seconds (9.4-12.1)
[2018-05-06 07:36] LABS: Calcium 8.6 mg/dL (8.6-10.3); Potassium 4.1 mEq/L (3.5-5.1)
[2018-05-06] MEDS: Aspirin Enteric Coated 81 MG Tablet PO SCH (07:39)
[2018-05-06] MEDS: amLODIPine 5 MG TABLET PO SCH (07:39)
--- NOTE | 2018-05-06 09:24 | Nephrology Progress Note ---
Date of Encounter: 05/06/18 Time of Encounter: 11:45 - Assessment and Plan (1) Acute kidney failure Current Visit: Yes Status: Acute Acute kidney injury, beginning to stabilize Serum creatinine is fallen in comparison to yesterday, 1.91 down from 2.45 Patient has made approximately 900 mL of urine in the past 24 hours Suspected etiology of worsened renal function is tight control of blood pressure in hypertensive emergency The patient is now off nicardipine drip and blood pressure has started to trend upward, 191/88 this morning Although renal function improved with this higher blood pressure, the patient does seem to have increased shortness of breath which could be a symptom We recommend maintaining systolic blood pressure around 150-160 Recommend maintaining current blood pressure medications as they are, add clonidine 0.1 mg as needed Recommend against labetalol for use as an a PRN medication in this patient Hold all nephrotoxic agents as able Qualifiers: Acute renal failure type: unspecified Qualified Code(s): N17.9 - Acute kidney failure, unspecified (2) Hypertensive emergency Current Visit: Yes Status: Acute Hypertensive emergency with elevated troponins and LEXIE Patient's blood pressure is now under better control with the exception of this morning As above, recommend maintaining blood pressure at systolic blood pressure 150- 160 Clonidine 0.1 mg when necessary can be used for elevated blood pressure Recommend against use of labetalol as PRN med for hypertension Subjective Principal diagnosis: Elevated Troponin Interval history: The patient is resting in bed at time of examination. She did have some elevated blood pressures overnight but overall she felt okay until this morning at which time she started to have some shortness of breath. This is not associated with any chest pains. She otherwise has no acute complaints. Objective - Vital Signs Vital signs: Vital Signs Temp Pulse Resp BP Pulse Ox 05/06/18 07:42 97.7 F 71 18 177/75 95 05/06/18 05:15 98 F 69 19 174/69 95 05/05/18 23:31 97.9 F 62 18 169/82 96 05/05/18 19:27 98.1 F 67 18 162/70 95 05/05/18 11:52 98.0 F 60 18 151/63 93 Intake and Output 05/05/18 05/06/18 05/06/18 23:59 07:59 15:59 Intake Total 1240 / 1240 Output Total 350 / 350 900 / 900 Balance 890 / 890 -900 / -900 Intake: IV Fluids 1000 / 1000 0.9 % Sodium Chloride 1,000 ML 1000 / 1000 @ 100 mls/hr IVC .Q10H [facility]I Rx#: [id number] Oral 240 / 240 Output: Catheter 350 / 350 900 / 900 Urethral (Finley) 900 / 900 Other: Meal Dinner Percent of Meal Consumed 100% Stool Size Small Stool Consistency loose formed Stool Color Brown # Bowel Movements 1 Weight 76.3 kg Patient Weight 05/06/18 23:59 Weight 76.3 kg - General Appearance Exam: Gen: Vitals noted. Appears mild to moderately distressed and short of breath HEENT: Normocephalic, atraumatic Neck: Supple. No adenopathy. Cardiac: RRR, no murmur, +S1/S2 Pulmonary: Patient appears dyspneic. Diminished in the bases bilaterally with crackles present globally. Wheezes present particularly in the right lung Abdomen: soft, nontender, BS noted, no guarding Extremities: no BLE edema, nontender calf, no cyanosis or clubbing Neuro: A&Ox3, moves all extremities, no focal deficits Psych: Appropriate mood and behavior - Lab 05/06/18 06:27 05/06/18 06:27 Most recent lab results Calcium 8.6 mg/dL (8.6-10.3) 05/06/18 06:27 Phosphorus 4.7 mg/dL (2.7-4.5) H 05/02/18 04:25 Magnesium 2.4 mg/dL (1.6-2.6) 05/02/18 04:25 Urine Creatinine 56 mg/dL 05/01/18 21:31 Urine Sodium 67.3 mEq/L 05/01/18 21:31 - VTE Documentation of Mechanical Device: Intermittent pneumatic compression device Consult Discharge Plan - Plan Referrals: Debbie Keith CNP [Partnered Physician] - (Office will call patient at home with follow up appointment) Rosetta Esparza CNP [Advanced Practice Nurse] - 05/16/18 3:00 pm (Please arrive 30 minutes early to fill out paper work. Take with you your ins. card, Picture ID, all medications in the bottles including over the counter meds. This office does not give out controlled meds. If you need to cancel please call 24 hour before your appointment at [phone]. This is located in the medical office building [address].)
--- NOTE | 2018-05-06 09:32 | Internal Med Progress Note ---
<Olimpia Fletcher N - Last Filed: 05/06/18 18:21> Hospitalist Progress Note - Encounter Date of Encounter: 05/06/18 Time of Encounter: 09:45 - Subjective Interval History: Ms. Kohler is an 83-year old female who presented to the ED on 05/01/2018 complaining of increasing SOB and new-onset orthopnea x 7 days. She was admitted for nevaluation and management of new-onset CHF. Her past medical history is significant for uncontrolled hypertension, with systolic BP reportedly in the 200s. She does not currently have a PCP. On assessment today, she denies any complaints and reports that she feels like she is pretty much at baseline. She denies chest pain, shortness of breath, or edema. 05/06 - Patient reports increased SOB with exertion, but reports that she otherwise feels fine. She denies any complaints or concerns. - Exam Vitals: Temp Pulse Resp BP Pulse Ox 97.7 F 71 18 177/75 95 05/06/18 07:42 05/06/18 07:42 05/06/18 07:42 05/06/18 07:42 05/06/18 07:42 Exam: * General: Pleasant elderly female in no acute distress. She is conversational and responds appropriately to questions. * HEENT: Atraumatic and normocephalic. Nasal canula in place. * Cardiovascular: Regular rate and rhythm. S1 and S2 present. No murmurs, rubs, or gallops. * Respiratory: Decreased inspiratory effort. Clear breath sounds bilaterally. * Gastrointestinal: Active bowel sounds x 4 quadrants. Abdomen is soft and nontender. * Extremities: No clubbing, cyanosis, or edema present. * Neurologic: Patient moves extremities spontaneously. No apparent focal deficits. - Assessment and Plan (1) New onset of congestive heart failure Current Visit: Yes Status: Acute Assessment and Plan: Patient presented with worsening shortness of breath and new-onset orthopnea x 7 days. 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 Chest xray revealed diffuse prominent interstitial markings and bilateral pleural effusions, which was suspected to be sequela of congestive failure. She was started on antihypertensive therapy with some improvement in blood pressure. An attempt was made for diuresis with lasix 20mg daily; however, patient developed LEXIE, necessitating discontinuation of that therapy. On exam today, patient was resting comfortably and denied any shortness of breath. Patient is volume overloaded, with a cumulative I/O for this admission of 6260/1975 (+4285mL). Her weight has increased throughout this admission, with a gain of 4.1kg since yesterday (weight 73.2kg yesterday, 77.3kg today). In light of her LEXIE, aggressive diuresis is ill-advised. Will continue to monitor clinically, with strict I/Os and 1.5mL daily fluid restriction. 05/06 - Patient is down 1kg from yesterday. 24-H I/Os were 480/1300. Will cautiously begin gentle diuresis. Patient has SOB with exertion, which is likely exacerbated by her current fluid overloaded state. Will continue current management. (2) Atrial fibrillation Current Visit: Yes Status: Acute Assessment and Plan: Patient demonstrated atrial fibrillation on telemetry. Cardiology consult recommended consideration of LHC, particularly in light of the patient's elevated troponin this admission (0.10, 1.23, 0.89); however, LHC has been postponed in light of LEXIE and decreased renal function. Patient is currently in normal sinus rhythm and is rate controlled. Plan to continue monitoring. She was initiallty anticoagulated with heparin, which was discontinued today. Anticoagulation therapy with warfarin initiated, with pharmacy to dose to therapeutic INR. Patient will follow up with cardiology as an outpatient after discharge for potential LHC and further management of this problem. 05/06 - Patient is not currently at therapeutic INR. Will continue current medical therapy and coumadin adjustment per pharmacy protocol. (3) Acute kidney failure Current Visit: Yes Status: Acute Assessment and Plan: Patient developed LEXIE after diuretic administration. Renal ultrasound demonstrated no hydronephrosis. She is currently receiving IV fluids at 100mL/ hr. Kidneys demonstrated some improvement today, with creatinine of 2.45 (down from 2.65 yesterday). Plan to continue gentle hydration and close monitoring of renal function. 05/06 - Continued improvement today with creatinine at 1.91. Patient received one dose of lasix tomorrow. Plan to continue close monitoring of renal function with addition of scheduled diuretic therapy if she tolerates today's dose well. (4) CKD (chronic kidney disease) Current Visit: Yes Status: Suspected Assessment and Plan: Suspect CKD in light of patient's uncontrolled hypertension and signs of end- organ damage at the time of admission. Will continue to monitor. Patient would benefit from outpatient followup by PCP for further evaluation and determination of baseline renal function. (5) Urinary retention Current Visit: Yes Status: Acute Assessment and Plan: Patient has a history of urinary retention managed with flomax 0.4mg daily. Ultrasound revealed post-void residual volume of 186mL. Will continue flomax with monitoring of daily urine production. 05/06 - Finley catheter removed today. Will continue to monitor closely for signs of acute retention. (6) Hypoxia Current Visit: Yes Status: Acute Assessment and Plan: Patient's shortness of breath has improved, though she is still receiving 2L supplemental oxygen via nasal canula with oxygen saturation at 93%. She has not ambulated. Plan to continue oxygen therapy and begin ambulation tomorrow with nursing assistance. Patient will be assessed for home oxygen needs prior to discharge. 05/06 - Increased SOB with exertion. Encouraged continued ambulation with assistance. Plan to continue supplemental oxygen therapy. (7) Uncontrolled hypertension Current Visit: Yes Status: Acute Assessment and Plan: At the time of presentation to the ED, patient had elevated BP of 184/110. She reported a history of uncontrolled hypertension, with reported systolic BP in the 200s. She was started on amlodipine 10mg daily and metoprolol 50mg BID. Morning blood pressure today was 164/69; hydralazine 10mg Q8H TID added for better BP control. At the time of admission, patient did demonstrate signs of end-organ damage, with elevated troponin and serum creatinine. Will continue current antihypertensive therapy and monitoring of laboratory studies. 05/06 - Patient has continued to have elevated BP throughout the day. Received 20mg IV lasix. Suspect that her hypertension is worsened by current fluid- overloaded status. Will continue to monitor and adjust medications as needed. - Time Spent with Patient Total time spent is greater than 50% in coordination of care (as documented) at patient's floor/unit and/or counseling patient: Internal Medicine: Result - Labs CBC & Chem 7: 05/06/18 06:27 05/06/18 06:27 Labs: Short CBC 05/06/18 Range/Units 06:27 WBC 7.6 (4.3-11.1) K/mcL Hgb 12.8 (11.5-15.4) g/dL Hct 39.6 (35.3-44.9) % Plt Count 174 (140-400) K/mcL Neutrophils # 5.0 (1.6-8.9) K/mcL BMP 05/06/18 06:27 Sodium 140 Potassium 4.1 Chloride 110 H Carbon Dioxide 24 BUN 41 H Creatinine 1.91 H Glucose 92 Calcium 8.6 - ABG Interpretation ABG results: PT/INR, D-dimer PT 13.5 Seconds (9.4-12.1) H 05/06/18 07:05 - VTE Documentation of Mechanical Device: Intermittent pneumatic compression device Consult Discharge Plan - Plan Referrals: Debbie Keith CNP [Partnered Physician] - (Office will call patient at home with follow up appointment) Rosetta Esparza CNP [Advanced Practice Nurse] - 05/16/18 3:00 pm (Please arrive 30 minutes early to fill out paper work. Take with you your ins. card, Picture ID, all medications in the bottles including over the counter meds. This office does not give out controlled meds. If you need to cancel please call 24 hour before your appointment at [phone]. This is located in the medical office building [address].) <Conrado Stephenson - Last Filed: 05/06/18 19:15> Hospitalist Progress Note - Encounter Date of Encounter: 05/06/18 - Exam Vitals: Temp Pulse Resp BP Pulse Ox 98.1 F 70 20 171/75 95 05/06/18 16:32 05/06/18 16:32 05/06/18 16:32 05/06/18 16:32 05/06/18 16:32 - Assessment and Plan (1) New onset of congestive heart failure Current Visit: Yes Status: Acute (2) Acute kidney failure Current Visit: Yes Status: Suspected (3) Atrial fibrillation Current Visit: Yes Status: Chronic (4) Urinary retention Current Visit: Yes Status: Acute (5) CKD (chronic kidney disease) Current Visit: Yes Status: Suspected (6) Hypoxia Current Visit: Yes Status: Acute (7) Uncontrolled hypertension Current Visit: Yes Status: Acute (8) Acute CHF (congestive heart failure) Current Visit: Yes Status: Acute (9) Hypertensive emergency Current Visit: Yes Status: Resolved (10) Acute respiratory failure with hypoxia Current Visit: Yes Status: Acute - Time Spent with Patient Total time spent is greater than 50% in coordination of care (as documented) at patient's floor/unit and/or counseling patient: Internal Medicine: Result - Labs CBC & Chem 7: 05/06/18 06:27 05/06/18 06:27 Labs: Short CBC 05/06/18 Range/Units 06:27 WBC 7.6 (4.3-11.1) K/mcL Hgb 12.8 (11.5-15.4) g/dL Hct 39.6 (35.3-44.9) % Plt Count 174 (140-400) K/mcL Neutrophils # 5.0 (1.6-8.9) K/mcL BMP 05/06/18 06:27 Sodium 140 Potassium 4.1 Chloride 110 H Carbon Dioxide 24 BUN 41 H Creatinine 1.91 H Glucose 92 Calcium 8.6 - ABG Interpretation ABG results: PT/INR, D-dimer PT 13.5 Seconds (9.4-12.1) H 05/06/18 07:05 - Attending Attestation I examined this patient and my medical decision-making was reviewed with the Resident Physician on 05/06/18. I agree with the documented findings, disposition and treatment plan as described except to the extent set forth below. Ms Kohler is currently admitted with acute CHF and a fib. She remains moderate to high risk due to potential for worsening clinical status. Ms Kohler just got back from bathroom. She is moderately dyspneic at this time. No fever or chills. EF is low. Does not want heart cath. Exam alert. Mod distress at rest Mucus membranes dry Heart irreg Lungs with rales bilaterally Abd soft I/P 1. Acute Systolic CHF 2. A fib Further diagnoses and plan as above. <Olimpia Fletcher N - Last Filed: 05/06/18 18:21> (2) Atrial fibrillation Qualifiers: Atrial fibrillation type: paroxysmal Qualified Code(s): I48.0 - Paroxysmal atrial fibrillation (3) Acute kidney failure Qualifiers: Acute renal failure type: unspecified Qualified Code(s): N17.9 - Acute kidney failure, unspecified (4) CKD (chronic kidney disease) Qualifiers: Chronic kidney disease stage: unspecified stage Qualified Code(s): N18.9 - Chronic kidney disease, unspecified <Conrado Stephenson A - Last Filed: 05/06/18 19:15> (2) Acute kidney failure Qualifiers: Acute renal failure type: with acute tubular necrosis Qualified Code(s): N17.0 - Acute kidney failure with tubular necrosis (3) Atrial fibrillation Qualifiers: Atrial fibrillation type: paroxysmal Qualified Code(s): I48.0 - Paroxysmal atrial fibrillation (5) CKD (chronic kidney disease) Qualifiers: Chronic kidney disease stage: stage 4 (severe) Qualified Code(s): N18.4 - Chronic kidney disease, stage 4 (severe) (8) Acute CHF (congestive heart failure) Qualifiers: Heart failure type: diastolic Qualified Code(s): I50.31 - Acute diastolic ( congestive) heart failure
--- NOTE | 2018-05-06 09:58 | Cardiology Progress Note ---
Date of Encounter: 05/06/18 Time of Encounter: 09:30 Assessment and Plan (1) Hypertensive emergency Current Visit: Yes Status: Acute Per cardiology: -Blood pressure better controlled. Defer management to primary team. (2) Elevated troponin Current Visit: Yes Status: Acute Per cardiology: -Type II NSTEMI likely, can't r/o underlying CAD. -Troponins down trending. -No acute ischemic ECG changes. -Denies chest pain. -TTE reviewed with LVEF preserved. -Of note, now with LEXIE. -On ASA, statin, BB. Had been on heparin drip for >48 hours. -Discussed with patient regarding recommendations for LHC, at this time patient does not wish to proceed inpatient with LHC, even if renal function improves. Patient agreeable to outpatient follow up. -Cardiology will sign off and will arrange outpatient follow up. (3) Acute kidney failure Current Visit: Yes Status: Acute Per cardiology: -LEXIE noted. -Renal function improving. -Management per primary and nephrology services. Qualifiers: Acute renal failure type: unspecified Qualified Code(s): N17.9 - Acute kidney failure, unspecified (4) Atrial fibrillation Current Visit: Yes Status: Acute Per cardiology: -PAF, currently back to with PACs. -[id number] score 5 (age2, gender, HTN, CHF) prefer warfarin over NOAC now given age, low eGFR and question of compliance. Has been started on coumadin. -Average HR 67. -Continue BB and coumadin. -Will send referral to coumadin clinic. WIll send message to cardiology clinic nurse, cardiology will manage INR after discharge until seen by coumadin clinic. Qualifiers: Atrial fibrillation type: paroxysmal Qualified Code(s): I48.0 - Paroxysmal atrial fibrillation Discussion w patient/family: The assessment and plan as outlined above was discussed with the patient who expressed understanding and agreement. All questions were answered. Thank you for involving us in the care of your patient. Please call with any questions. Discussed and reviewed with . Subjective Principal diagnosis: Elevated Troponin Interval history: Patient denies chest pain, resting comfortably in bed. Patient states she is anxious to go home. Objective Vital Signs, Last 4 Hours Temp Pulse Resp BP Pulse Ox 05/06/18 07:42 97.7 F 71 18 177/75 95 General: Conversant, No Apparent Distress HEENT: Atraumatic, Normocephaly, Mucus Membranes Moist Neck: No JVD, Normal carotid pulses Cardiac: Reg Rate and Rhythm, Normal S1 and S2, No Murmur Lungs: Normal Breath Sounds, No Wheeze, Rales, Rhonchi Neuro: Alert and responsive, No focal deficits noted Abdomen: Soft, Non-Tender Skin: No rashes noted on visualized skin Musculoskeletal: No Chest Wall Tenderness Extremities: No Clubbing, No Cyanosis, No Edema, Normal Pulses Results 05/06/18 06:27 05/06/18 06:27 Lab Results Active Medications Amlodipine Besylate (Norvasc) 10 mg PO DAILY [facility] PRN Reason: Protocol Stop: 11/01/18 09:01 Last Admin: 05/06/18 07:39 Dose: 10 mg Aspirin (Aspirin Ec) 81 mg PO DAILY [facility] Stop: 11/01/18 09:01 Last Admin: 05/06/18 07:39 Dose: 81 mg Atorvastatin Calcium (Lipitor) 20 mg PO HS [facility]I Stop: 11/01/18 21:01 Last Admin: 05/05/18 21:06 Dose: 20 mg Hydralazine HCl (Hydralazine) 10 mg PO Q8HR [facility]I Stop: 11/04/18 16:01 Last Admin: 05/06/18 07:39 Dose: 10 mg Metoprolol Tartrate (Lopressor) 50 mg PO BID [facility]I Stop: 11/03/18 09:01 Last Admin: 05/06/18 07:39 Dose: 50 mg Naloxone HCl (Narcan) 0.4 mg IVP Q2MIN PRN PRN Reason: SEE COMMENTS Stop: 10/31/18 17:28 Tamsulosin HCl (Flomax) 0.4 mg PO DAILY [facility] PRN Reason: Protocol Stop: 11/02/18 09:01 Last Admin: 05/06/18 07:40 Dose: 0.4 mg Warfarin Sodium (Coumadin Perpt) 1 each PO DAILY@1800 PRN PRN Reason: SEE COMMENTS Stop: 11/04/18 18:01 Warfarin Sodium (Coumadin) 5 mg PO ONCE ONE Stop: 05/06/18 18:01 Laboratory Tests 05/05/18 05/06/18 05/06/18 04:59 06:27 06:27 Hgb 12.8 INR Creatinine 2.45 H 1.91 H 05/06/18 07:05 Hgb INR 1.2 Creatinine - Imaging and Cardiology Chest Xray: report reviewed Echo: report reviewed - EKG Interpretation EKG results cardiology: other (Telemetry reviewed with average HR previous 12 hours noted to be 66, SR. PVCs and PACs noted.) - VTE Documentation of Mechanical Device: Intermittent pneumatic compression device Consult Discharge Plan - Plan Referrals: Debbie Keith CNP [Partnered Physician] - (Office will call patient at home with follow up appointment) Rosetta Esparza CNP [Advanced Practice Nurse] - 05/08/18 9:45 am (Please arrive 30 minutes early to fill out paper work. Take with you your ins. card, Picture ID, all medications in the bottles including over the counter meds. This office does not give out controlled meds. If you need to cancel please call 24 hour before your appointment at [phone]. This is located in the medical office building [address].)
[2018-05-06] MEDS ORDERED: Furosemide 20 MG/2 ML VIAL IVP ONE (11:31)
[2018-05-06] MEDS ORDERED: cloNIDine HCl 0.1 MG TABLET PO ONE (11:49)
[2018-05-06] MEDS ORDERED: *HR* Warfarin 5 MG TABLET PO ONE (18:00)
[2018-05-07] MEDS: hydrALAZINE 10 MG TABLET PO SCH ×4 (00:30→21:49)
[2018-05-07] MEDS ORDERED: Levalbuterol Neb 1.25 MG/3 ML ONE (00:55)
[2018-05-07] MEDS: Levalbuterol Neb 1.25 MG/3 ML IH SCH ×3 (00:57→09:57)
[2018-05-07 04:50] LABS: Basophils % 0.4 %; Eosinophils # 0.2 K/mcL (0.0-0.6); Eosinophils % 2.5 %; Hematocrit 37.6 % (35.3-44.9); Hemoglobin 12.2 g/dL (11.5-15.4); Immature Granulocytes % 0.2 % (0-4); Lymphocytes # 1.5 K/mcL (0.6-4.6); Lymphocytes % 18.4 %; Mean Corpuscular HGB Conc 32.4 g/dL (31.6-35.5); Mean Corpuscular Hemoglobin 27.6 pg (28.0-33.3); Mean Corpuscular Volume 85.1 fL (83.0-100.0); Mean Platelet Volume 13.1 fL (9.4-12.4); Monocytes # 0.7 K/mcL (0.0-1.3); Monocytes % 9.2 %; Neutrophils # 5.6 K/mcL (1.6-8.9); Platelet Count 189 K/mcL (140-400); Red Blood Count 4.42 M/mcL (3.82-4.97); Segmented Neutrophils % 69.3 %
[2018-05-07 04:57] LABS: INR 1.4; Prothrombin Time 16.1 Seconds (9.4-12.1)
[2018-05-07 05:15] LABS: Calcium 9.2 mg/dL (8.6-10.3)
[2018-05-07] MEDS: amLODIPine 5 MG TABLET PO SCH (07:42)
[2018-05-07] MEDS: Aspirin Enteric Coated 81 MG Tablet PO SCH (07:42)
--- NOTE | 2018-05-07 08:16 | Electrocardiograph Report ---
[place] [id number] Test Date: 2018-05-05 Pat Name: Veronica Kohler Department: 110 Room: 2N14 Gender: F [employer]: MAXIMO : 1935 Requested By: Laura Stanley Order Number: [id number] Reading MD: Alma Bowles Measurements Intervals [place] Rate: 60 P: FL: 0 QRS: -10 QRSD: 96 T: 151 QT: 464 QTc: 465 Interpretive Statements SINUS RHYTHM WITH PREMATURE SUPRAVENTRICULAR COMPLEXES MODERATE VOLTAGE CRITERIA FOR LVH, CONSIDER NORMAL VARIANT ST DEVIATION AND MODERATE T-WAVE ABNORMALITY, CONSIDER LATERAL ISCHEMIA BASELINE ARTIFACT Electronically Signed On 05-07-2018 8:15:26 EDT by Alma Bowles
--- NOTE | 2018-05-07 09:29 | Nephrology Progress Note ---
Date of Encounter: 05/07/18 Time of Encounter: 10:20 - Assessment and Plan (1) Acute kidney failure Current Visit: Yes Status: Suspected Acute kidney injury, beginning to stabilize Serum creatinine is fallen in comparison to yesterday, 1.85 down from 1.91 Patient states that her urine was not measured appropriately overnight so it is unclear how much she made, however she feels that it was appropriate amount Suspected etiology of worsened renal function is tight control of blood pressure in hypertensive emergency Patient's remained off nicardipine drip and blood pressure has been remaining relatively stable at around SBP 150-160 with some exceptions Although renal function improved with this higher blood pressure, the patient does seem to have increased shortness of breath which could be a symptom We recommend maintaining systolic blood pressure around 150-160 Recommend maintaining current blood pressure medications as they are, add clonidine 0.1 mg as needed Recommend against labetalol for use as an a PRN medication in this patient Hold all nephrotoxic agents as able Patient will need nephrology follow-up as an out-patient Qualifiers: Acute renal failure type: with acute tubular necrosis Qualified Code(s): N17.0 - Acute kidney failure with tubular necrosis (2) Hypertensive emergency Current Visit: Yes Status: Resolved Hypertensive emergency with elevated troponins and LEXIE Patient's blood pressure is now under better control with the exception of this morning As above, recommend maintaining blood pressure at systolic blood pressure 150- 160 Clonidine 0.1 mg when necessary can be used for elevated blood pressure Recommend against use of labetalol as PRN med for hypertension Subjective Principal diagnosis: Elevated Troponin Interval history: The patient is resting in bed at time of examination. She did have some elevated blood pressures overnight but overall she felt okay with the exception of some shortness of breath which was associated with some elevated blood pressures, however that did begin to fall. She has no acute complaints at this time. Objective - Vital Signs Vital signs: Vital Signs Temp Pulse Resp BP Pulse Ox 05/07/18 06:52 98.1 F 76 18 151/61 94 05/07/18 03:48 16 91 05/07/18 03:20 98.1 F 68 20 196/77 95 05/07/18 00:57 18 96 05/07/18 00:01 98.1 F 72 20 193/93 90 05/06/18 19:33 98.0 F 69 18 168/64 97 05/06/18 16:32 98.1 F 70 20 171/75 95 05/06/18 12:06 97.7 F 68 20 191/83 95 Intake and Output 05/06/18 05/07/18 05/07/18 23:59 07:59 15:59 Intake Total 240 / 240 240 / 240 Output Total 200 / 200 350 / 350 Balance 40 / 40 -350 / -350 240 / 240 Intake: Oral 240 / 240 240 / 240 Output: Urine 200 / 200 350 / 350 Other: Meal Breakfast Percent of Meal Consumed 0% # Voids 1 Weight 74.7 kg Patient Weight 05/07/18 23:59 Weight 74.7 kg - General Appearance Exam: Gen: Vitals noted. No acute distress HEENT: Normocephalic, atraumatic Neck: Supple. No adenopathy. Cardiac: RRR, no murmur, +S1/S2 Pulmonary: Diminished in the bases bilaterally however improved significantly compared to previous exam Abdomen: soft, nontender, BS noted, no guarding Extremities: no BLE edema, nontender calf, no cyanosis or clubbing Neuro: A&Ox3, moves all extremities, no focal deficits Psych: Appropriate mood and behavior - Lab 05/07/18 03:48 05/07/18 03:48 Most recent lab results Calcium 9.2 mg/dL (8.6-10.3) 05/07/18 03:48 Phosphorus 4.7 mg/dL (2.7-4.5) H 05/02/18 04:25 Magnesium 2.4 mg/dL (1.6-2.6) 05/02/18 04:25 Urine Creatinine 56 mg/dL 05/01/18 21:31 Urine Sodium 67.3 mEq/L 05/01/18 21:31 - VTE Documentation of Mechanical Device: Intermittent pneumatic compression device Consult Discharge Plan - Plan Referrals: Debbie Keith CNP [Partnered Physician] - (Office will call patient at home with follow up appointment) Rosetta Esparza CNP [Advanced Practice Nurse] - 05/16/18 3:00 pm (Please arrive 30 minutes early to fill out paper work. Take with you your ins. card, Picture ID, all medications in the bottles including over the counter meds. This office does not give out controlled meds. If you need to cancel please call 24 hour before your appointment at [phone]. This is located in the medical office building [address].)
[2018-05-07] MEDS ORDERED: Naloxone 0.4 MG/ML INJ IVP PRN (10:35)
[2018-05-07] MEDS ORDERED: Warfarin perPT PO PRN (10:35)
--- NOTE | 2018-05-07 11:45 | Internal Med Progress Note ---
<Conrado Stephenson - Last Filed: 05/07/18 19:20> Hospitalist Progress Note - Encounter Date of Encounter: 05/07/18 - Exam Vitals: Temp Pulse Resp BP Pulse Ox 97.9 F 79 20 163/62 94 05/07/18 18:30 05/07/18 18:30 05/07/18 18:30 05/07/18 18:30 05/07/18 18:30 - Assessment and Plan (1) Acute CHF (congestive heart failure) Current Visit: Yes Status: Acute (2) New onset of congestive heart failure Current Visit: Yes Status: Acute (3) Acute kidney failure Current Visit: Yes Status: Suspected (4) Atrial fibrillation Current Visit: Yes Status: Chronic (5) Urinary retention Current Visit: Yes Status: Acute (6) CKD (chronic kidney disease) Current Visit: Yes Status: Suspected (7) Hypoxia Current Visit: Yes Status: Acute (8) Uncontrolled hypertension Current Visit: Yes Status: Acute - Time Spent with Patient Total time spent is greater than 50% in coordination of care (as documented) at patient's floor/unit and/or counseling patient: Internal Medicine: Result - Labs CBC & Chem 7: 05/07/18 03:48 05/07/18 03:48 Labs: Short CBC 05/07/18 Range/Units 03:48 WBC 8.1 (4.3-11.1) K/mcL Hgb 12.2 (11.5-15.4) g/dL Hct 37.6 (35.3-44.9) % Plt Count 189 (140-400) K/mcL Neutrophils # 5.6 (1.6-8.9) K/mcL BMP 05/07/18 03:48 Sodium 139 Potassium 4.0 Chloride 108 H Carbon Dioxide 22 L BUN 39 H Creatinine 1.85 H Glucose 96 Calcium 9.2 - ABG Interpretation ABG results: PT/INR, D-dimer PT 16.1 Seconds (9.4-12.1) H 05/07/18 03:48 Consult Discharge Plan - Plan Referrals: Debbie Keith CNP [Partnered Physician] - (Office will call patient at home with follow up appointment) Rosetta Esparza CNP [Advanced Practice Nurse] - 05/16/18 3:00 pm (Please arrive 30 minutes early to fill out paper work. Take with you your ins. card, Picture ID, all medications in the bottles including over the counter meds. This office does not give out controlled meds. If you need to cancel please call 24 hour before your appointment at [phone]. This is located in the medical office building [address].) - Attending Attestation I examined this patient and my medical decision-making was reviewed with the Resident Physician on 05/07/18. I agree with the documented findings, disposition and treatment plan as described except to the extent set forth below. Ms Kohler is currently admitted for a fib and systolic CHF. She remains moderate to high risk due to potential for worsening clinical status. Ms Kohler is breathing somewhat better today. No fever or chills. Some cough. No pain. Exam alert Comfortable Mucus membranes dry Heart irreg and not tachy Lungs with rales but better overall Abd soft No edema I/P 1. Diastolic heart failure 2. A fib Further diagnoses and plan as above. <Olimpia Fletcher N - Last Filed: 05/07/18 21:28> Hospitalist Progress Note - Encounter Date of Encounter: 05/07/18 Time of Encounter: 10:00 - Subjective Interval History: Ms. Kohler is an 83-year old female who presented to the ED on 05/01/2018 complaining of increasing SOB and new-onset orthopnea x 7 days. She was admitted for nevaluation and management of new-onset CHF. Her past medical history is significant for uncontrolled hypertension, with systolic BP reportedly in the 200s. She does not currently have a PCP. On assessment today, she denies any complaints and reports that she feels like she is pretty much at baseline. She denies chest pain, shortness of breath, or edema. 05/06 - Patient reports increased SOB with exertion, but reports that she otherwise feels fine. She denies any complaints or concerns. 05/07 - Ms. Kohler reports improved breathing, though she still experiences exertional dyspnea. She denies any difficulty voiding. She denies any complaints or concerns at tis time. - Exam Vitals: Temp Pulse Resp BP Pulse Ox 98.2 F 69 19 157/69 96 05/07/18 11:38 05/07/18 11:38 05/07/18 11:38 05/07/18 11:38 05/07/18 11:38 Exam: * General: Pleasant elderly female in no acute distress. She is conversational and responds appropriately to questions. * HEENT: Atraumatic and normocephalic. Nasal canula in place. * Cardiovascular: Regular rate and rhythm. S1 and S2 present. No murmurs, rubs, or gallops. * Respiratory: Improved inspiratory effort compared to yesterday. Clear breath sounds bilaterally. * Gastrointestinal: Abdomen is soft and nontender. * Extremities: No clubbing, cyanosis, or edema present. * Neurologic: Patient moves extremities spontaneously. No apparent focal deficits. - Assessment and Plan (1) New onset of congestive heart failure Current Visit: Yes Status: Acute Assessment and Plan: Patient presented with worsening shortness of breath and new-onset orthopnea x 7 days. 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 Chest xray revealed diffuse prominent interstitial markings and bilateral pleural effusions, which was suspected to be sequela of congestive failure. She was started on antihypertensive therapy with some improvement in blood pressure. An attempt was made for diuresis with lasix 20mg daily; however, patient developed LEXIE, necessitating discontinuation of that therapy. On exam today, patient was resting comfortably and denied any shortness of breath. Patient is volume overloaded, with a cumulative I/O for this admission of 6260/1975 (+4285mL). Her weight has increased throughout this admission, with a gain of 4.1kg since yesterday (weight 73.2kg yesterday, 77.3kg today). In light of her LEXIE, aggressive diuresis is ill-advised. Will continue to monitor clinically, with strict I/Os and 1.5mL daily fluid restriction. 05/06 - Patient is down 1kg from yesterday. 24-H I/Os were 480/1300. Will cautiously begin gentle diuresis. Patient has SOB with exertion, which is likely exacerbated by her current fluid overloaded state. Will continue current management. 05/07 - Patient is down an additional 1.6kg from yesterday. She tolerated lasix yesterday without issue, and creatinine today was further improved at 1.85 today , down from 1.91 yesterday. Recent urine output is not recorded; however, patient reports that she feels she has been urinating adequately. Patient was started on lasix 20mg PO BID. Will continue cautious diuresis with close watch on renal function. Patient's family was at the bedside today with many questions about this problem and inquiries regarding possible stress test. Per cardiology note, patient's family was advised that a stress test would not be appropriate at this time due to the possibility of acute NSTEMI and again recommended outpatient followup for LHC after discharge. (2) Atrial fibrillation Current Visit: Yes Status: Chronic Assessment and Plan: Patient demonstrated atrial fibrillation on telemetry. Cardiology consult recommended consideration of LHC, particularly in light of the patient's elevated troponin this admission (0.10, 1.23, 0.89); however, LHC has been postponed in light of LEXIE and decreased renal function. Patient is currently in normal sinus rhythm and is rate controlled. Plan to continue monitoring. She was initiallty anticoagulated with heparin, which was discontinued today. Anticoagulation therapy with warfarin initiated, with pharmacy to dose to therapeutic INR. Patient will follow up with cardiology as an outpatient after discharge for potential LHC and further management of this problem. 05/06 - Patient is not currently at therapeutic INR. Will continue current medical therapy and coumadin adjustment per pharmacy protocol. 05/07 - Continued coumadin therapy with goal of achieving therapeutic INR. She will be referred to a coumadin clinic following discharge. (3) Acute kidney failure Current Visit: Yes Status: Suspected Assessment and Plan: Patient developed LEXIE after diuretic administration. Renal ultrasound demonstrated no hydronephrosis. She is currently receiving IV fluids at 100mL/ hr. Kidneys demonstrated some improvement today, with creatinine of 2.45 (down from 2.65 yesterday). Plan to continue gentle hydration and close monitoring of renal function. 05/06 - Continued improvement today with creatinine at 1.91. Patient received one dose of lasix tomorrow. Plan to continue close monitoring of renal function with addition of scheduled diuretic therapy if she tolerates today's dose well. 05/07 - Patient has had further improvement in renal function, with creatinine of 1.85. IV fluid hydration discontinued, with continuation of 1.5L fluid restriction. Began scheduled lasix 20mg PO BID. Will maintain close watch on renal function. (4) CKD (chronic kidney disease) Current Visit: Yes Status: Suspected Assessment and Plan: Suspect CKD in light of patient's uncontrolled hypertension and signs of end- organ damage at the time of admission. Will continue to monitor. Patient would benefit from outpatient followup by PCP for further evaluation and determination of baseline renal function. (5) Urinary retention Current Visit: Yes Status: Acute Assessment and Plan: Patient has a history of urinary retention managed with flomax 0.4mg daily. Ultrasound revealed post-void residual volume of 186mL. Will continue flomax with monitoring of daily urine production. 05/06 - Finley catheter removed today. Will continue to monitor closely for signs of acute retention. 05/07 - Patient has denied any acute urinary retention and reports voiding well. Will continue to monitor for signs of acute urinary retention. (6) Hypoxia Current Visit: Yes Status: Acute Assessment and Plan: Patient's shortness of breath has improved, though she is still receiving 2L supplemental oxygen via nasal canula with oxygen saturation at 93%. She has not ambulated. Plan to continue oxygen therapy and begin ambulation tomorrow with nursing assistance. Patient will be assessed for home oxygen needs prior to discharge. 05/06 - Increased SOB with exertion. Encouraged continued ambulation with assistance. Plan to continue supplemental oxygen therapy. 05/07 - Patient has had improved shortness of breath, but continues to have exertional dyspnea. She reports decreased orthopnea. She is still requiring supplemental oxygen therapy. Patient is to ambulate TID with assistance. Anticipate that patient will likely qualify for supplemental home oxygen prior to discharge. (7) Uncontrolled hypertension Current Visit: Yes Status: Acute Assessment and Plan: At the time of presentation to the ED, patient had elevated BP of 184/110. She reported a history of uncontrolled hypertension, with reported systolic BP in the 200s. She was started on amlodipine 10mg daily and metoprolol 50mg BID. Morning blood pressure today was 164/69; hydralazine 10mg Q8H TID added for better BP control. At the time of admission, patient did demonstrate signs of end-organ damage, with elevated troponin and serum creatinine. Will continue current antihypertensive therapy and monitoring of laboratory studies. 05/06 - Patient has continued to have elevated BP throughout the day. Received 20mg IV lasix. Suspect that her hypertension is worsened by current fluid- overloaded status. Will continue to monitor and adjust medications as needed. 05/07 - BP has been better controlled today, with systolic 150-160. Per nephrology recommendations, will strive to maintain BP in that range to prevent further insult to her kidneys. - Time Spent with Patient Total time spent is greater than 50% in coordination of care (as documented) at patient's floor/unit and/or counseling patient: Internal Medicine: Result - Labs CBC & Chem 7: 05/07/18 03:48 05/07/18 03:48 Labs: Short CBC 05/07/18 Range/Units 03:48 WBC 8.1 (4.3-11.1) K/mcL Hgb 12.2 (11.5-15.4) g/dL Hct 37.6 (35.3-44.9) % Plt Count 189 (140-400) K/mcL Neutrophils # 5.6 (1.6-8.9) K/mcL BMP 05/07/18 03:48 Sodium 139 Potassium 4.0 Chloride 108 H Carbon Dioxide 22 L BUN 39 H Creatinine 1.85 H Glucose 96 Calcium 9.2 - ABG Interpretation ABG results: PT/INR, D-dimer PT 16.1 Seconds (9.4-12.1) H 05/07/18 03:48 - VTE Documentation of Mechanical Device: Intermittent pneumatic compression device <Conrado Stephenson - Last Filed: 05/07/18 19:20> (1) Acute CHF (congestive heart failure) Qualifiers: Heart failure type: diastolic Qualified Code(s): I50.31 - Acute diastolic ( congestive) heart failure (3) Acute kidney failure Qualifiers: Acute renal failure type: with acute tubular necrosis Qualified Code(s): N17.0 - Acute kidney failure with tubular necrosis (4) Atrial fibrillation Qualifiers: Atrial fibrillation type: paroxysmal Qualified Code(s): I48.0 - Paroxysmal atrial fibrillation (6) CKD (chronic kidney disease) Qualifiers: Chronic kidney disease stage: stage 4 (severe) Qualified Code(s): N18.4 - Chronic kidney disease, stage 4 (severe) <Olimpia Fletcher N - Last Filed: 05/07/18 21:28> (2) Atrial fibrillation Qualifiers: Atrial fibrillation type: paroxysmal Qualified Code(s): I48.0 - Paroxysmal atrial fibrillation (3) Acute kidney failure Qualifiers: Acute renal failure type: with acute tubular necrosis Qualified Code(s): N17.0 - Acute kidney failure with tubular necrosis (4) CKD (chronic kidney disease) Qualifiers: Chronic kidney disease stage: stage 4 (severe) Qualified Code(s): N18.4 - Chronic kidney disease, stage 4 (severe)
[2018-05-07] MEDS: Furosemide 20 MG TABLET PO SCH ×2 (12:48→16:16)
[2018-05-07] MEDS ORDERED: hydrALAZINE 10 MG TABLET PO SCH (16:00)
--- NOTE | 2018-05-07 16:53 | Event Note ---
Date of Encounter: 05/07/18 Time of Encounter: 16:51 - Cardiology Event Note Patient's family questioning regarding potential stress test. Discussed at length with patient and daughter at bedside, would not recommend stress test due to NSTEMI. Patient still does not wish to proceed with LHC inpatient. Discussed possible stress test vs. LHC in outpatient setting. Patient will follow with [facility] in outpatient setting, follow up set.
[2018-05-07] MEDS ORDERED: *HR* Warfarin 5 MG TABLET PO ONE (18:00)
[2018-05-08] MEDS: hydrALAZINE 10 MG TABLET PO SCH ×4 (06:00→21:08)
[2018-05-08 06:57] LABS: Basophils % 0.5 %; Eosinophils # 0.2 K/mcL (0.0-0.6); Eosinophils % 2.8 %; Hemoglobin 12.4 g/dL (11.5-15.4); Immature Granulocytes % 0.3 % (0-4); Lymphocytes # 1.3 K/mcL (0.6-4.6); Lymphocytes % 16.8 %; Mean Corpuscular HGB Conc 31.8 g/dL (31.6-35.5); Mean Corpuscular Hemoglobin 27.4 pg (28.0-33.3); Mean Corpuscular Volume 86.1 fL (83.0-100.0); Mean Platelet Volume 13.2 fL (9.4-12.4); Monocytes # 0.9 K/mcL (0.0-1.3); Monocytes % 11.5 %; Neutrophils # 5.3 K/mcL (1.6-8.9); Platelet Count 182 K/mcL (140-400); Red Blood Count 4.53 M/mcL (3.82-4.97); Red Cell Distribution Width 14.3 % (11.5-14.5); Segmented Neutrophils % 68.1 %
[2018-05-08 07:12] LABS: INR 2.5; Prothrombin Time 28.6 Seconds (9.4-12.1)
[2018-05-08 07:18] LABS: Calcium 8.8 mg/dL (8.6-10.3); Potassium 3.7 mEq/L (3.5-5.1)
--- NOTE | 2018-05-08 07:43 | Internal Med Progress Note ---
<Olimpia Fletcher N - Last Filed: 05/08/18 10:04> Hospitalist Progress Note - Encounter Date of Encounter: 05/08/18 Time of Encounter: 07:42 - Subjective Interval History: Ms. Kohler is an 83-year old female who presented to the ED on 05/01/2018 complaining of increasing SOB and new-onset orthopnea x 7 days. She was admitted for nevaluation and management of new-onset CHF. Her past medical history is significant for uncontrolled hypertension, with systolic BP reportedly in the 200s. She does not currently have a PCP. On assessment today, she denies any complaints and reports that she feels like she is pretty much at baseline. She denies chest pain, shortness of breath, or edema. 05/06 - Patient reports increased SOB with exertion, but reports that she otherwise feels fine. She denies any complaints or concerns. 05/07 - Ms. Kohler reports improved breathing, though she still experiences exertional dyspnea. She denies any difficulty voiding. She denies any complaints or concerns at tis time. 05/08 - Overnight team reported hypertension with SBP in the 180s. Patient was administered PRN hydralazine. Morning BP was still elevated at 187/68. Patient denied any complaints and stated that she feels fine. She denies any shortness of breath or difficulty in breathing. She states that she has been eating and drinking well. She has ambulated to the bathroom without trouble. - Exam Vitals: Temp Pulse Resp BP Pulse Ox 98.1 F 69 17 187/68 96 05/08/18 07:15 05/08/18 07:15 05/08/18 07:15 05/08/18 07:15 05/08/18 07:15 Exam: * General: Pleasant elderly female in no acute distress. She is sitting up in bed comfortably. She responds appropriately to questions. * HEENT: Atraumatic and normocephalic. Nasal canula in place. * Cardiovascular: Regular rate and rhythm. S1 and S2 present. No murmurs, rubs, or gallops. * Respiratory: Clear breath sounds bilaterally. Appears mildly dyspneic while conversing. * Gastrointestinal: Abdomen is soft and nontender. * Extremities: No clubbing, cyanosis, or edema present. * Neurologic: Patient moves extremities spontaneously. No apparent focal deficits. - Assessment and Plan (1) New onset of congestive heart failure Current Visit: Yes Status: Acute Assessment and Plan: Patient presented with worsening shortness of breath and new-onset orthopnea x 7 days. 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 Chest xray revealed diffuse prominent interstitial markings and bilateral pleural effusions, which was suspected to be sequela of congestive failure. She was started on antihypertensive therapy with some improvement in blood pressure. An attempt was made for diuresis with lasix 20mg daily; however, patient developed LEXIE, necessitating discontinuation of that therapy. On exam today, patient was resting comfortably and denied any shortness of breath. Patient is volume overloaded, with a cumulative I/O for this admission of 6260/1975 (+4285mL). Her weight has increased throughout this admission, with a gain of 4.1kg since yesterday (weight 73.2kg yesterday, 77.3kg today). In light of her LEXIE, aggressive diuresis is ill-advised. Will continue to monitor clinically, with strict I/Os and 1.5mL daily fluid restriction. 05/06 - Patient is down 1kg from yesterday. 24-H I/Os were 480/1300. Will cautiously begin gentle diuresis. Patient has SOB with exertion, which is likely exacerbated by her current fluid overloaded state. Will continue current management. 05/07 - Patient is down an additional 1.6kg from yesterday. She tolerated lasix yesterday without issue, and creatinine today was further improved at 1.85 today , down from 1.91 yesterday. Recent urine output is not recorded; however, patient reports that she feels she has been urinating adequately. Patient was started on lasix 20mg PO BID. Will continue cautious diuresis with close watch on renal function. Patient's family was at the bedside today with many questions about this problem and inquiries regarding possible stress test. Per cardiology note, patient's family was advised that a stress test would not be appropriate at this time due to the possibility of acute NSTEMI and again recommended outpatient followup for [facility] after discharge. 05/08 - Patient tolerated lasix well yesterday, and had good urine output. Current I/Os are 50/950mL. Her weight is +0.5kg from yesterday. She denies shortness of breath at rest, but does still report exertional dyspnea. Will begin ambulating patient in the hallway, as she needs qualification for home oxygen use. Will increase diuresis to 40mg PO BID tomorrow as long as her renal function remains stable. (2) Atrial fibrillation Current Visit: Yes Status: Chronic Assessment and Plan: Patient demonstrated atrial fibrillation on telemetry. Cardiology consult recommended consideration of LHC, particularly in light of the patient's elevated troponin this admission (0.10, 1.23, 0.89); however, LHC has been postponed in light of LEXIE and decreased renal function. Patient is currently in normal sinus rhythm and is rate controlled. Plan to continue monitoring. She was initiallty anticoagulated with heparin, which was discontinued today. Anticoagulation therapy with warfarin initiated, with pharmacy to dose to therapeutic INR. Patient will follow up with cardiology as an outpatient after discharge for potential LHC and further management of this problem. 05/06 - Patient is not currently at therapeutic INR. Will continue current medical therapy and coumadin adjustment per pharmacy protocol. 05/07 - Continued coumadin therapy with goal of achieving therapeutic INR. She will be referred to a coumadin clinic following discharge. 05/08 - Patient appeared to be in sinus rhythm at the time of exam this morning. Her INR was 2.5 today. Will continue to monitor daily with adjustments as needed. (3) Acute kidney failure Current Visit: Yes Status: Suspected Assessment and Plan: Patient developed LEXIE after diuretic administration. Renal ultrasound demonstrated no hydronephrosis. She is currently receiving IV fluids at 100mL/ hr. Kidneys demonstrated some improvement today, with creatinine of 2.45 (down from 2.65 yesterday). Plan to continue gentle hydration and close monitoring of renal function. 05/06 - Continued improvement today with creatinine at 1.91. Patient received one dose of lasix tomorrow. Plan to continue close monitoring of renal function with addition of scheduled diuretic therapy if she tolerates today's dose well. 05/07 - Patient has had further improvement in renal function, with creatinine of 1.85. IV fluid hydration discontinued, with continuation of 1.5L fluid restriction. Began scheduled lasix 20mg PO BID. Will maintain close watch on renal function. 05/08 - Creatinine further improved today at 1.7. She appears to be tolerating PO lasix well. Plan to increase to 40mg PO BID tomorrow, with continuation of fluid-restricted diet. (4) CKD (chronic kidney disease) Current Visit: Yes Status: Suspected Assessment and Plan: Suspect CKD in light of patient's uncontrolled hypertension and signs of end- organ damage at the time of admission. Will continue to monitor. Patient would benefit from outpatient followup by PCP for further evaluation and determination of baseline renal function. (5) Urinary retention Current Visit: Yes Status: Acute Assessment and Plan: Patient has a history of urinary retention managed with flomax 0.4mg daily. Ultrasound revealed post-void residual volume of 186mL. Will continue flomax with monitoring of daily urine production. 05/06 - Finley catheter removed today. Will continue to monitor closely for signs of acute retention. 05/07 - Patient has denied any acute urinary retention and reports voiding well. Will continue to monitor for signs of acute urinary retention. 05/08 - Patient continues to have good urine output. Will maintain close watch for signs of retention. (6) Hypoxia Current Visit: Yes Status: Acute Assessment and Plan: Patient's shortness of breath has improved, though she is still receiving 2L supplemental oxygen via nasal canula with oxygen saturation at 93%. She has not ambulated. Plan to continue oxygen therapy and begin ambulation tomorrow with nursing assistance. Patient will be assessed for home oxygen needs prior to discharge. 05/06 - Increased SOB with exertion. Encouraged continued ambulation with assistance. Plan to continue supplemental oxygen therapy. 05/07 - Patient has had improved shortness of breath, but continues to have exertional dyspnea. She reports decreased orthopnea. She is still requiring supplemental oxygen therapy. Patient is to ambulate TID with assistance. Anticipate that patient will likely qualify for supplemental home oxygen prior to discharge.walk- 05/08 - Improving. Patient to undergo walk test today for home oxygen qualification. (7) Uncontrolled hypertension Current Visit: Yes Status: Acute Assessment and Plan: At the time of presentation to the ED, patient had elevated BP of 184/110. She reported a history of uncontrolled hypertension, with reported systolic BP in the 200s. She was started on amlodipine 10mg daily and metoprolol 50mg BID. Morning blood pressure today was 164/69; hydralazine 10mg Q8H TID added for better BP control. At the time of admission, patient did demonstrate signs of end-organ damage, with elevated troponin and serum creatinine. Will continue current antihypertensive therapy and monitoring of laboratory studies. 05/06 - Patient has continued to have elevated BP throughout the day. Received 20mg IV lasix. Suspect that her hypertension is worsened by current fluid- overloaded status. Will continue to monitor and adjust medications as needed. 05/07 - BP has been better controlled today, with systolic 150-160. Per nephrology recommendations, will strive to maintain BP in that range to prevent further insult to her kidneys. 05/08 - Patient had increased BP last night, with systolic in the 180s. Increased hydralazine to 15mg TID. Will consider addition of clonidine 0.1mg if patient continues to have hypertension. - Time Spent with Patient Total time spent is greater than 50% in coordination of care (as documented) at patient's floor/unit and/or counseling patient: Internal Medicine: Result - Labs CBC & Chem 7: 05/08/18 06:21 05/08/18 06:21 Labs: Short CBC 05/08/18 Range/Units 06:21 WBC 7.8 (4.3-11.1) K/mcL Hgb 12.4 (11.5-15.4) g/dL Hct 39.0 (35.3-44.9) % Plt Count 182 (140-400) K/mcL Neutrophils # 5.3 (1.6-8.9) K/mcL BMP 05/08/18 06:21 Sodium 139 Potassium 3.7 Chloride 109 H Carbon Dioxide 25 BUN 32 H Creatinine 1.70 H Glucose 113 H Calcium 8.8 - ABG Interpretation ABG results: PT/INR, D-dimer PT 28.6 Seconds (9.4-12.1) H D 05/08/18 06:21 - VTE Documentation of Mechanical Device: Intermittent pneumatic compression device Consult Discharge Plan - Plan Referrals: Debbie Keith CNP [Partnered Physician] - (Office will call patient at home with follow up appointment) Rosetta Esparza CNP [Advanced Practice Nurse] - 05/16/18 3:00 pm (Please arrive 30 minutes early to fill out paper work. Take with you your ins. card, Picture ID, all medications in the bottles including over the counter meds. This office does not give out controlled meds. If you need to cancel please call 24 hour before your appointment at [phone]. This is located in the medical office building [address].) <Conrado Stephenson - Last Filed: 05/08/18 16:41> Hospitalist Progress Note - Encounter Date of Encounter: 05/08/18 - Exam Vitals: Temp Pulse Resp BP Pulse Ox 98.2 F 65 18 180/80 93 05/08/18 15:52 05/08/18 15:52 05/08/18 15:52 05/08/18 15:52 05/08/18 15:52 - Assessment and Plan (1) New onset of congestive heart failure Current Visit: Yes Status: Acute (2) Acute kidney failure Current Visit: Yes Status: Suspected (3) Atrial fibrillation Current Visit: Yes Status: Chronic (4) Urinary retention Current Visit: Yes Status: Acute (5) CKD (chronic kidney disease) Current Visit: Yes Status: Suspected (6) Hypoxia Current Visit: Yes Status: Acute (7) Uncontrolled hypertension Current Visit: Yes Status: Acute (8) Acute respiratory failure with hypoxia Current Visit: Yes Status: Acute (9) Acute CHF (congestive heart failure) Current Visit: Yes Status: Acute - Time Spent with Patient Total time spent is greater than 50% in coordination of care (as documented) at patient's floor/unit and/or counseling patient: Internal Medicine: Result - Labs CBC & Chem 7: 05/08/18 06:21 05/08/18 06:21 Labs: Short CBC 05/08/18 Range/Units 06:21 WBC 7.8 (4.3-11.1) K/mcL Hgb 12.4 (11.5-15.4) g/dL Hct 39.0 (35.3-44.9) % Plt Count 182 (140-400) K/mcL Neutrophils # 5.3 (1.6-8.9) K/mcL BMP 05/08/18 06:21 Sodium 139 Potassium 3.7 Chloride 109 H Carbon Dioxide 25 BUN 32 H Creatinine 1.70 H Glucose 113 H Calcium 8.8 - ABG Interpretation ABG results: PT/INR, D-dimer PT 28.6 Seconds (9.4-12.1) H D 05/08/18 06:21 - Attending Attestation / I examined this patient and my medical decision-making was reviewed with the Resident Physician on 05/08/18. I agree with the documented findings, disposition and /treatment plan as described except to the extent set forth below. Ms Kohler is currently admitted for acute exac CHF and a fib. She remains moderate to high risk due to potential for worsening clinical status. Ms Kohler continues to slowly improve. No fever or chills. Has been up moving around some. No GI issues. No chest pain. Plans to follow up with cardiology as outpatient to further discuss ischemic work up. Exam Alert Comfortable at this time. Mucus membranes dry Heart irreg - not tachy Bibasilar rales noted Abd soft and nontender. I/P 1. Acute exac CHF 2. A fib Further diagnoses and plan as above. Increase diuresis as tolerated (renal function continues to improve). Probable d/c in 1-2 days. <Olimpia Fletcher - Last Filed: 05/08/18 10:04> (2) Atrial fibrillation Qualifiers: Atrial fibrillation type: paroxysmal Qualified Code(s): I48.0 - Paroxysmal atrial fibrillation (3) Acute kidney failure Qualifiers: Acute renal failure type: with acute tubular necrosis Qualified Code(s): N17.0 - Acute kidney failure with tubular necrosis (4) CKD (chronic kidney disease) Qualifiers: Chronic kidney disease stage: stage 4 (severe) Qualified Code(s): N18.4 - Chronic kidney disease, stage 4 (severe) <Conrado Stephenson A - Last Filed: 05/08/18 16:41> (2) Acute kidney failure Qualifiers: Acute renal failure type: with acute tubular necrosis Qualified Code(s): N17.0 - Acute kidney failure with tubular necrosis (3) Atrial fibrillation Qualifiers: Atrial fibrillation type: persistent Qualified Code(s): I48.1 - Persistent atrial fibrillation (5) CKD (chronic kidney disease) Qualifiers: Chronic kidney disease stage: stage 4 (severe) Qualified Code(s): N18.4 - Chronic kidney disease, stage 4 (severe) (9) Acute CHF (congestive heart failure) Qualifiers: Heart failure type: diastolic Qualified Code(s): I50.31 - Acute diastolic ( congestive) heart failure
[2018-05-08] MEDS: Aspirin Enteric Coated 81 MG Tablet PO SCH (07:45)
[2018-05-08] MEDS: Furosemide 20 MG TABLET PO SCH (07:45)
[2018-05-08] MEDS: amLODIPine 5 MG TABLET PO SCH (07:45)
[2018-05-08] MEDS: Furosemide 20 MG/2 ML VIAL IVP SCH ×2 (11:40→17:43)
[2018-05-08] MEDS: cloNIDine HCl 0.1 MG TABLET PO PRN ×2 (13:21→17:43)
[2018-05-09 04:36] LABS: Basophils # 0.1 K/mcL (0.0-0.2); Basophils % 0.7 %; Eosinophils # 0.2 K/mcL (0.0-0.6); Eosinophils % 3.2 %; Hematocrit 39.5 % (35.3-44.9); Hemoglobin 12.9 g/dL (11.5-15.4); Immature Granulocytes % 0.3 % (0-4); Lymphocytes # 1.7 K/mcL (0.6-4.6); Lymphocytes % 23.8 %; Mean Corpuscular HGB Conc 32.7 g/dL (31.6-35.5); Mean Corpuscular Hemoglobin 27.9 pg (28.0-33.3); Mean Corpuscular Volume 85.5 fL (83.0-100.0); Mean Platelet Volume 12.7 fL (9.4-12.4); Monocytes # 0.9 K/mcL (0.0-1.3); Neutrophils # 4.3 K/mcL (1.6-8.9); Platelet Count 183 K/mcL (140-400); Red Blood Count 4.62 M/mcL (3.82-4.97); Red Cell Distribution Width 14.1 % (11.5-14.5)
[2018-05-09 04:44] LABS: INR 2.8; Prothrombin Time 31.6 Seconds (9.4-12.1)
[2018-05-09 04:59] LABS: Calcium 9.1 mg/dL (8.6-10.3); Potassium 3.7 mEq/L (3.5-5.1)
[2018-05-09] MEDS: hydrALAZINE 10 MG TABLET PO SCH ×3 (08:03→20:35)
[2018-05-09] MEDS: Aspirin Enteric Coated 81 MG Tablet PO SCH (08:03)
[2018-05-09] MEDS: Furosemide 20 MG/2 ML VIAL IVP SCH (08:03)
[2018-05-09] MEDS: amLODIPine 5 MG TABLET PO SCH (08:03)
--- NOTE | 2018-05-09 08:25 | Internal Med Progress Note ---
<Olimpia Fletcher N - Last Filed: 05/09/18 10:50> Hospitalist Progress Note - Encounter Date of Encounter: 05/09/18 Time of Encounter: 08:25 - Subjective Interval History: Ms. Kohler is an 83-year old female who presented to the ED on 05/01/2018 complaining of increasing SOB and new-onset orthopnea x 7 days. She was admitted for nevaluation and management of new-onset CHF. Her past medical history is significant for uncontrolled hypertension, with systolic BP reportedly in the 200s. She does not currently have a PCP. On assessment today, she denies any complaints and reports that she feels like she is pretty much at baseline. She denies chest pain, shortness of breath, or edema. 05/06 - Patient reports increased SOB with exertion, but reports that she otherwise feels fine. She denies any complaints or concerns. 05/07 - Ms. Kohler reports improved breathing, though she still experiences exertional dyspnea. She denies any difficulty voiding. She denies any complaints or concerns at tis time. 05/08 - Overnight team reported hypertension with SBP in the 180s. Patient was administered PRN hydralazine. Morning BP was still elevated at 187/68. Patient denied any complaints and stated that she feels fine. She denies any shortness of breath or difficulty in breathing. She states that she has been eating and drinking well. She has ambulated to the bathroom without trouble. 05/09 - Patient reports having successfully ambulated in the [place] yesterday without complications. She is currently off supplemental oxygen, and 6-minute walk test performed yesterday demonstrated that she does not currently qualify for home oxygen. She denies any complaints or concerns, and reports that she is feeling well. - Exam Vitals: Temp Pulse Resp BP Pulse Ox 98.5 F 70 18 177/69 92 05/09/18 07:30 05/09/18 07:30 05/09/18 07:30 05/09/18 07:30 05/09/18 07:30 Exam: * General: Pleasant elderly female in no acute distress. She is resting in bed comfortably. She responds appropriately to questions. * HEENT: Atraumatic and normocephalic. * Cardiovascular: Regular rate and rhythm. S1 and S2 present. No murmurs, rubs, or gallops. * Respiratory: Clear breath sounds bilaterally. No dyspnea noted while speaking. * Gastrointestinal: Abdomen is soft and nontender. * Extremities: No clubbing, cyanosis, or edema present. * Neurologic: Patient moves extremities spontaneously. No apparent focal deficits. - Assessment and Plan (1) New onset of congestive heart failure Current Visit: Yes Status: Acute Assessment and Plan: Patient presented with worsening shortness of breath and new-onset orthopnea x 7 days. 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 Chest xray revealed diffuse prominent interstitial markings and bilateral pleural effusions, which was suspected to be sequela of congestive failure. She was started on antihypertensive therapy with some improvement in blood pressure. An attempt was made for diuresis with lasix 20mg daily; however, patient developed LEXIE, necessitating discontinuation of that therapy. On exam today, patient was resting comfortably and denied any shortness of breath. Patient is volume overloaded, with a cumulative I/O for this admission of 6260/1975 (+4285mL). Her weight has increased throughout this admission, with a gain of 4.1kg since yesterday (weight 73.2kg yesterday, 77.3kg today). In light of her LEXIE, aggressive diuresis is ill-advised. Will continue to monitor clinically, with strict I/Os and 1.5mL daily fluid restriction. 05/06 - Patient is down 1kg from yesterday. 24-H I/Os were 480/1300. Will cautiously begin gentle diuresis. Patient has SOB with exertion, which is likely exacerbated by her current fluid overloaded state. Will continue current management. 05/07 - Patient is down an additional 1.6kg from yesterday. She tolerated lasix yesterday without issue, and creatinine today was further improved at 1.85 today , down from 1.91 yesterday. Recent urine output is not recorded; however, patient reports that she feels she has been urinating adequately. Patient was started on lasix 20mg PO BID. Will continue cautious diuresis with close watch on renal function. Patient's family was at the bedside today with many questions about this problem and inquiries regarding possible stress test. Per cardiology note, patient's family was advised that a stress test would not be appropriate at this time due to the possibility of acute NSTEMI and again recommended outpatient followup for [facility] after discharge. 05/08 - Patient tolerated lasix well yesterday, and had good urine output. Current I/Os are 50/950mL. Her weight is +0.5kg from yesterday. She denies shortness of breath at rest, but does still report exertional dyspnea. Will begin ambulating patient in the hallway, as she needs qualification for home oxygen use. Will increase diuresis to 40mg PO BID tomorrow as long as her renal function remains stable. 05/09 - Patient has denied any shortness of breath or breathing difficulties since yesterday. She was able to ambulate without supplemental oxygen and did not qualify for home oxygen. She has been weaned off supplemental oxygen here; oxygen saturation this morning was 92% on room air. I/Os from yesteray were 510/ 1550mL, and she is -2.2kg since yesterday. She was switched to 20mg IV lasix BID yesterday, which she tolerated fairly well. Changed her diuretic to lasix 40mg PO BID in anticipation of likely discharge tomorrow. (2) Acute kidney failure Current Visit: Yes Status: Suspected Assessment and Plan: Patient developed LEXIE after diuretic administration. Renal ultrasound demonstrated no hydronephrosis. She is currently receiving IV fluids at 100mL/ hr. Kidneys demonstrated some improvement today, with creatinine of 2.45 (down from 2.65 yesterday). Plan to continue gentle hydration and close monitoring of renal function. 05/06 - Continued improvement today with creatinine at 1.91. Patient received one dose of lasix tomorrow. Plan to continue close monitoring of renal function with addition of scheduled diuretic therapy if she tolerates today's dose well. 05/07 - Patient has had further improvement in renal function, with creatinine of 1.85. IV fluid hydration discontinued, with continuation of 1.5L fluid restriction. Began scheduled lasix 20mg PO BID. Will maintain close watch on renal function. 05/08 - Creatinine further improved today at 1.7. She appears to be tolerating PO lasix well. Plan to increase to 40mg PO BID tomorrow, with continuation of fluid-restricted diet. 05/09 - Increased serum creatinine today at 1.8. She has been switched from IV to PO lasix. She has had good urine output. Will continue to monitor renal function, but anticipate discharge tomorrow with continuation of lasix 40mg BID. (3) Atrial fibrillation Current Visit: Yes Status: Chronic Assessment and Plan: Patient demonstrated atrial fibrillation on telemetry. Cardiology consult recommended consideration of LHC, particularly in light of the patient's elevated troponin this admission (0.10, 1.23, 0.89); however, LHC has been postponed in light of LEXIE and decreased renal function. Patient is currently in normal sinus rhythm and is rate controlled. Plan to continue monitoring. She was initiallty anticoagulated with heparin, which was discontinued today. Anticoagulation therapy with warfarin initiated, with pharmacy to dose to therapeutic INR. Patient will follow up with cardiology as an outpatient after discharge for potential LHC and further management of this problem. 05/06 - Patient is not currently at therapeutic INR. Will continue current medical therapy and coumadin adjustment per pharmacy protocol. 05/07 - Continued coumadin therapy with goal of achieving therapeutic INR. She will be referred to a coumadin clinic following discharge. 05/08 - Patient appeared to be in sinus rhythm at the time of exam this morning. Her INR was 2.5 today. Will continue to monitor daily with adjustments as needed. 05/09 - INR 2.8. (4) Urinary retention Current Visit: Yes Status: Acute Assessment and Plan: Patient has a history of urinary retention managed with flomax 0.4mg daily. Ultrasound revealed post-void residual volume of 186mL. Will continue flomax with monitoring of daily urine production. 05/06 - Finley catheter removed today. Will continue to monitor closely for signs of acute retention. 05/07 - Patient has denied any acute urinary retention and reports voiding well. Will continue to monitor for signs of acute urinary retention. 05/08 - Patient continues to have good urine output. Will maintain close watch for signs of retention. 05/09 - Urine output yesterday was 1550mL. She continuous to deny any urinary frequency or discomfort. (5) CKD (chronic kidney disease) Current Visit: Yes Status: Suspected Assessment and Plan: Suspect CKD in light of patient's uncontrolled hypertension and signs of end- organ damage at the time of admission. Will continue to monitor. Patient would benefit from outpatient followup by PCP for further evaluation and determination of baseline renal function. (6) Hypoxia Current Visit: Yes Status: Acute Assessment and Plan: Patient's shortness of breath has improved, though she is still receiving 2L supplemental oxygen via nasal canula with oxygen saturation at 93%. She has not ambulated. Plan to continue oxygen therapy and begin ambulation tomorrow with nursing assistance. Patient will be assessed for home oxygen needs prior to discharge. 05/06 - Increased SOB with exertion. Encouraged continued ambulation with assistance. Plan to continue supplemental oxygen therapy. 05/07 - Patient has had improved shortness of breath, but continues to have exertional dyspnea. She reports decreased orthopnea. She is still requiring supplemental oxygen therapy. Patient is to ambulate TID with assistance. Anticipate that patient will likely qualify for supplemental home oxygen prior to discharge.walk- 05/08 - Improving. Patient to undergo walk test today for home oxygen qualification. 05/09 - Patient is currently doing well without supplemental oxygen and did not qualify for home oxygen use. Will continue to monitor and assess for signs of worsening respiratory status. (7) Uncontrolled hypertension Current Visit: Yes Status: Acute Assessment and Plan: At the time of presentation to the ED, patient had elevated BP of 184/110. She reported a history of uncontrolled hypertension, with reported systolic BP in the 200s. She was started on amlodipine 10mg daily and metoprolol 50mg BID. Morning blood pressure today was 164/69; hydralazine 10mg Q8H TID added for better BP control. At the time of admission, patient did demonstrate signs of end-organ damage, with elevated troponin and serum creatinine. Will continue current antihypertensive therapy and monitoring of laboratory studies. 05/06 - Patient has continued to have elevated BP throughout the day. Received 20mg IV lasix. Suspect that her hypertension is worsened by current fluid- overloaded status. Will continue to monitor and adjust medications as needed. 05/07 - BP has been better controlled today, with systolic 150-160. Per nephrology recommendations, will strive to maintain BP in that range to prevent further insult to her kidneys. 05/08 - Patient had increased BP last night, with systolic in the 180s. Increased hydralazine to 15mg TID. Will consider addition of clonidine 0.1mg if patient continues to have hypertension. 05/09 - Patient continues to have increased BP, particularly overnight. Hydralazine increased to 25mg TID. Patient also has PRN clonidine 0.1mg. - Time Spent with Patient Total time spent is greater than 50% in coordination of care (as documented) at patient's floor/unit and/or counseling patient: Internal Medicine: Result - Labs CBC & Chem 7: 05/09/18 04:20 05/09/18 04:20 Labs: Short CBC 05/09/18 Range/Units 04:20 WBC 7.1 (4.3-11.1) K/mcL Hgb 12.9 (11.5-15.4) g/dL Hct 39.5 (35.3-44.9) % Plt Count 183 (140-400) K/mcL Neutrophils # 4.3 (1.6-8.9) K/mcL BMP 05/09/18 04:20 Sodium 141 Potassium 3.7 Chloride 105 Carbon Dioxide 28 BUN 29 H Creatinine 1.80 H Glucose 96 Calcium 9.1 - ABG Interpretation ABG results: PT/INR, D-dimer PT 31.6 Seconds (9.4-12.1) H 05/09/18 04:20 - VTE Documentation of Mechanical Device: Intermittent pneumatic compression device Consult Discharge Plan - Plan Referrals: Debbie Keith CNP [Partnered Physician] - (Office will call patient at home with follow up appointment) Rosetta Esparza CNP [Advanced Practice Nurse] - 05/16/18 3:00 pm (Please arrive 30 minutes early to fill out paper work. Take with you your ins. card, Picture ID, all medications in the bottles including over the counter meds. This office does not give out controlled meds. If you need to cancel please call 24 hour before your appointment at [phone]. This is located in the medical office building [address].) <Conrado Stephenson - Last Filed: 05/09/18 15:04> Hospitalist Progress Note - Encounter Date of Encounter: 05/09/18 - Exam Vitals: Temp Pulse Resp BP Pulse Ox 98.6 F 56 17 168/75 93 05/09/18 11:33 05/09/18 11:33 05/09/18 11:33 05/09/18 11:33 05/09/18 11:33 - Assessment and Plan (1) New onset of congestive heart failure Current Visit: Yes Status: Acute (2) Acute kidney failure Current Visit: Yes Status: Suspected (3) Atrial fibrillation Current Visit: Yes Status: Chronic (4) Urinary retention Current Visit: Yes Status: Acute (5) CKD (chronic kidney disease) Current Visit: Yes Status: Suspected (6) Hypoxia Current Visit: Yes Status: Acute (7) Uncontrolled hypertension Current Visit: Yes Status: Acute (8) Acute respiratory failure with hypoxia Current Visit: Yes Status: Resolved (9) Acute CHF (congestive heart failure) Current Visit: Yes Status: Acute - Time Spent with Patient Total time spent is greater than 50% in coordination of care (as documented) at patient's floor/unit and/or counseling patient: Internal Medicine: Result - Labs CBC & Chem 7: 05/09/18 04:20 05/09/18 04:20 Labs: Short CBC 05/09/18 Range/Units 04:20 WBC 7.1 (4.3-11.1) K/mcL Hgb 12.9 (11.5-15.4) g/dL Hct 39.5 (35.3-44.9) % Plt Count 183 (140-400) K/mcL Neutrophils # 4.3 (1.6-8.9) K/mcL BMP 05/09/18 04:20 Sodium 141 Potassium 3.7 Chloride 105 Carbon Dioxide 28 BUN 29 H Creatinine 1.80 H Glucose 96 Calcium 9.1 - ABG Interpretation ABG results: PT/INR, D-dimer PT 31.6 Seconds (9.4-12.1) H 05/09/18 04:20 - Attending Attestation I examined this patient and my medical decision-making was reviewed with the Resident Physician on 05/09/18. I agree with the documented findings, disposition and treatment plan as described except to the extent set forth below. Ms Kohler is currently admitted for acute exac systolic heart failure and a fib. She remains moderate to high risk due to potential for worsening clinical status. Ms Kohler is doing better overall. She is off oxygen. No fever or chills. Has been up walking. Able to lie flat. Exam alert Comfortable Mucus membranes dry Heart irreg and not tachy Lungs with faint basilar rales Abd soft and nontender No edema I/P 1. CHF 2. A fib - on coumadin. Rate controlled. Anticipate d/c home tomorrow. Further diagnoses and plan as above. <Olimpia Fletcher - Last Filed: 05/09/18 10:50> (2) Acute kidney failure Qualifiers: Acute renal failure type: with acute tubular necrosis Qualified Code(s): N17.0 - Acute kidney failure with tubular necrosis (3) Atrial fibrillation Qualifiers: Atrial fibrillation type: persistent Qualified Code(s): I48.1 - Persistent atrial fibrillation (5) CKD (chronic kidney disease) Qualifiers: Chronic kidney disease stage: stage 4 (severe) Qualified Code(s): N18.4 - Chronic kidney disease, stage 4 (severe) <Conrado Stephenson A - Last Filed: 05/09/18 15:04> (2) Acute kidney failure Qualifiers: Acute renal failure type: with acute tubular necrosis Qualified Code(s): N17.0 - Acute kidney failure with tubular necrosis (3) Atrial fibrillation Qualifiers: Atrial fibrillation type: persistent Qualified Code(s): I48.1 - Persistent atrial fibrillation (5) CKD (chronic kidney disease) Qualifiers: Chronic kidney disease stage: stage 4 (severe) Qualified Code(s): N18.4 - Chronic kidney disease, stage 4 (severe) (9) Acute CHF (congestive heart failure) Qualifiers: Heart failure type: diastolic Qualified Code(s): I50.31 - Acute diastolic ( congestive) heart failure
[2018-05-09] MEDS: Furosemide 40 MG TABLET PO SCH (16:55)
[2018-05-09] MEDS ORDERED: *HR* Warfarin 2.5 MG TABLET PO ONE (18:00)
[2018-05-10 05:07] LABS: Basophils % 0.5 %; Eosinophils # 0.2 K/mcL (0.0-0.6); Eosinophils % 2.7 %; Hematocrit 40.9 % (35.3-44.9); Hemoglobin 13.4 g/dL (11.5-15.4); Immature Granulocytes % 0.3 % (0-4); Lymphocytes # 1.7 K/mcL (0.6-4.6); Lymphocytes % 21.8 %; Mean Corpuscular HGB Conc 32.8 g/dL (31.6-35.5); Mean Corpuscular Hemoglobin 27.7 pg (28.0-33.3); Mean Corpuscular Volume 84.7 fL (83.0-100.0); Mean Platelet Volume 12.9 fL (9.4-12.4); Monocytes # 0.8 K/mcL (0.0-1.3); Monocytes % 10.6 %; Neutrophils # 4.9 K/mcL (1.6-8.9); Platelet Count 186 K/mcL (140-400); Red Blood Count 4.83 M/mcL (3.82-4.97); Segmented Neutrophils % 64.1 %
[2018-05-10 05:12] LABS: INR 2.4; Prothrombin Time 27.4 Seconds (9.4-12.1)
[2018-05-10 05:29] LABS: Calcium 8.9 mg/dL (8.6-10.3); Potassium 3.4 mEq/L (3.5-5.1)
[2018-05-10 07:27] VITALS: BP 184/72
[2018-05-10] MEDS: hydrALAZINE 10 MG TABLET PO SCH (08:19)
[2018-05-10] MEDS: Furosemide 40 MG TABLET PO SCH (08:20)
[2018-05-10] MEDS: amLODIPine 5 MG TABLET PO SCH (08:20)
[2018-05-10] MEDS: Aspirin Enteric Coated 81 MG Tablet PO SCH (08:20)
[2018-05-10] MEDS ORDERED: hydrALAZINE 10 MG TABLET PO SCH (09:02)
--- NOTE | 2018-05-10 09:27 | Discharge Summary ---
- NOTES TO OUTPATIENT PROVIDER Notes to Outpatient Provider: Pt admitted with new a fib and heart failure as well as uncontrolled HTN. To follow up with cardiology as outpatient to discuss ischemic work up. Orders not resulted at time of discharge: Pending orders 05/11/18 04:00 INR/PT [Prothrombin Time INR] [COAG] AM 0400 05/12/18 04:00 INR/PT [Prothrombin Time INR] [COAG] AM 0400 Date of Encounter: 05/10/18 Time of Encounter: 09:25 - Discharge Diagnosis (1) Acute respiratory failure with hypoxia Priority: Primary Status: Resolved (2) Acute CHF (congestive heart failure) Priority: Primary Status: Resolved Qualifiers: Heart failure type: diastolic Qualified Code(s): I50.31 - Acute diastolic ( congestive) heart failure (3) Uncontrolled hypertension Priority: Secondary Status: Chronic (4) Acute kidney failure Priority: Secondary Status: Resolved Qualifiers: Acute renal failure type: with acute tubular necrosis Qualified Code(s): N17.0 - Acute kidney failure with tubular necrosis (5) Atrial fibrillation Priority: Secondary Status: Chronic Qualifiers: Atrial fibrillation type: persistent Qualified Code(s): I48.1 - Persistent atrial fibrillation (6) Urinary retention Priority: Secondary Status: Resolved (7) CKD (chronic kidney disease) Priority: Secondary Status: Chronic Qualifiers: Chronic kidney disease stage: stage 4 (severe) Qualified Code(s): N18.4 - Chronic kidney disease, stage 4 (severe) (8) Hypertensive emergency Priority: Secondary Status: Resolved Hospital course: Ms. Kohler is a 83 year old female with prior hx of HTN presented to ED on 05/01 with complaints of increasing dypsnea and orthopnea. She was evaluated and admitted for further treatment. Ms Kohler was admitted to step down with acute CHF. She was also very hypertensive (had not been on meds). She was started on diuretic and had echo which showed normal EF with no wall motion abnormalities. She was evaluated by cardiology and was also noted to be in atrial fibrillation which was new. Her creatinine was elevated and nephrology was consulted for assistance. She had slow improvement in her symptoms. It was recommended that she have [facility] but she declined at this time. Her renal function slowly improved to what appeared to be a baseline of CKD 4. Her rate was controlled and she was started on warfarin for anticoagulation. She gradually had decreased dyspnea and orthopnea and was able to ambulate. She did not require oxygen. She was not placed on TONIA due to renal function. Today she is lying comfortably in bed. She has no pain and her breathing is much improved. She is afebrile and ready for discharge home. She is to follow with PCP and cardiology and with coumadin clinic for INR. Education on coumadin to be given. Discharge discussed with: patient, family - Time Spent with Patient Total time spent providing and/or coordinating discharge services: 41min - Discharge Medications Prescriptions: hydrALAZINE [HydrALAZINE] 50 mg PO Q8HR #180 tablet Amlodipine Besylate 10 mg PO DAILY #30 tablet Atorvastatin [Lipitor] 20 mg PO HS #30 tablet Furosemide [Lasix] 40 mg PO DAILY #30 tablet Metoprolol [Lopressor] 50 mg PO BID #60 tablet Warfarin [Coumadin] 2.5 mg PO 1800 #30 tablet Home Medications: Amlodipine Besylate 10 mg PO DAILY #30 tablet 05/10/18 [Rx] Aspirin Enteric Coated [Aspirin EC] 81 mg PO DAILY tablet. 05/10/18 [Rx] Atorvastatin [Lipitor] 20 mg PO HS #30 tablet 05/10/18 [Rx] Furosemide [Lasix] 40 mg PO DAILY #30 tablet 05/10/18 [Rx] Metoprolol [Lopressor] 50 mg PO BID #60 tablet 05/10/18 [Rx] Warfarin [Coumadin] 2.5 mg PO 1800 #30 tablet 05/10/18 [Rx] hydrALAZINE [HydrALAZINE] 50 mg PO Q8HR #180 tablet 05/10/18 [Rx] Allergies/Adverse Reactions: 3 Allergy/AdvReac Type Severity Reaction Status Date / Time No Known Allergies Allergy Verified 05/01/18 10:18 Date of admission: 05/01/18 15:15 Primary care physician: PCP NONE Consults: 05/02/18 09:16 Consult to Cardiology [CONS] Stat Comment: Consulting Provider: Cardiology Aurea Reason for Consult: Tropinin trending up, at 0.82 this morning Call Completed: Yes 05/02/18 13:53 Consult to Nephrology [CONS] Routine Consulting Provider: Kidney Aurea/AGA/SANYA/APRIL Reason for Consult: Evaluation of LEXIE in anticipation of left heart cath Call Completed: Yes 05/07/18 10:35 Consult to Respiratory Therapy [CONS] Routine Reason for Consult: Pt. dyspneic w/hx of CHF. Pt. also has hx of atrial fibrillation. Order for Xopenex IH tx placed to begin tonight. Call Completed: Yes Discharging clinician: Conrado Stephenson Anticipated date of discharge: 05/10/18 - Constitutional Vitals: Temp Pulse Resp BP Pulse Ox 98.0 F 75 18 184/72 90 05/10/18 07:26 05/10/18 07:26 05/10/18 07:26 05/10/18 07:26 05/10/18 07:26 General appearance: Present: cooperative, A&O X 3, pleasant, answers questions appropriately Exam: See below - Head Head exam: Present: normocephalic - Eye Eye exam: Present: EOMI, conjuntiva pink - ENT ENT exam: Present: mucous membranes moist - Respiratory Respiratory exam: Present: rales (Faint basilar rales on L.). Absent: accessory muscle use, respiratory distress, rhonchi, wheezes - Cardiovascular Cardiovascular exam: Present: irregular rhythm. Absent: tachycardia - GI/Abdominal GI/Abdominal exam: Present: normal bowel sounds, soft. Absent: tenderness - Extremities Exam Extremities exam: Present: warm. Absent: pedal edema, tenderness - Neurological Exam Neurological exam: Present: alert, oriented X3, no focal deficits - Skin Skin exam: Present: dry, warm. Absent: rash - Patient Status Disposition: Home, Self-Care Condition: Good Functional capacity at discharge: independent ambulation Overall status at discharge: patient is progressing back to baseline - Discharge Instructions Follow Up With: Debbie Keith CNP [Partnered Physician] - (Office will call patient at home with follow up appointment) Rosetta Esparza CNP [Advanced Practice Nurse] - 05/13/18 3:00 pm (Please arrive 30 minutes early to fill out paper work. Take with you your ins. card, Picture ID, all medications in the bottles including over the counter meds. This office does not give out controlled meds. If you need to cancel please call 24 hour before your appointment at [phone]. This is located in the medical office building [address]. Please have your INR drawn before this appointment and sent to Rosetta Esparza so she can evaluate your coumadin level.) Crawford,Olimpia N [Resident] - 05/14/18 4:00 pm (Scheduled by Dr. Fletcher) Additional Instructions: FOLLOW UP WITH COUMADIN CLINIC ON 2017 AT 9:00AM. - Diet and Activity Activity: increase activity as tolerated Diet: low fat, low cholesterol, low salt diet - VTE Documentation of Mechanical Device: Intermittent pneumatic compression device
--- NOTE | 2018-05-28 10:27 | AntiCoagulation Clinic ---
Anti-Coagulation History Referring Physician: Nain Tim Supervising Clinician: Isaias Du Medical history: hypertension Female Surgical History: non-contributory, cholecystectomy Additional surgical history PMH: Bilateral tubal ligation Smoking Status: Never smoker Smokeless Tobacco Status: No Alcohol use PMH: none Drug use: none Occupational status: retired Current living situation: Home - Independent, With Family Activity Level: Independent ambulation Recent Out of Country Travel Within the Last 8 Weeks: No Exposure or Possible Exposure to Illness During Travel: No Finger Stick INR: 1.4 INR Range: 2-3 (Afib) Specimen Processed (Date): 05/28/18 Specimen Processed (Time): 10:25 Dietary changes: no dietary changes Medication changes: no changes Adherence: patient denies adherence changes Missed doses: No Activity changes: no change Symptoms: none Upcoming procedure: No Patient Instructions: Begin taking your Coumadin according to the dosage schedule listed above. Have a great week and I'll see you soon. PLEASE ALERT US OF ANY MEDICATION CHANGES SOON THEY HAPPEN. Also make us aware of any illnesses that give you diarrhea or vomiting. Thank you! Please do not arrive more than 10 minutes prior to your scheduled appointment. Cancellation notice must be provided at least 24 hours in advance. Thank you!! If you experiencing a bleeding emergency and the voicemail is not picking up, please contact our toll free number at: Carolyn Hussein PharmD Diagonsis: All Active Problems Elevated serum creatinine (Acute) New onset of congestive heart failure (Acute) Elevated troponin (Acute) Atrial fibrillation (Chronic) CKD (chronic kidney disease) (Chronic) Uncontrolled hypertension (Chronic) Pharmacist Visit Note: Veronica Kohler was questioned extensively about any missed dosages, any exercise or lifestyle changes, new medication regimens, any changes in diet or increased/decreased vitamin K foods, any bleeding issues, any illnesses including any nausea, vomiting or diarrhea as well as any upcoming surgeries or procedures. Patient denies any further changes. Appointment time: 15 minutes Carolyn Hussein PharmD. - Dosing Schedule Warfarin Strength: 2.5mg Daily Dose (Sun): 2.5 # of Tablets (Sun): 1 Daily Dose (Mon): 2.5 # of Tablets (Mon): 1 Daily Dose (Tue): 2.5 # of Tablets (Tue): 1 Daily Dose (Wed): 2.5 # of Tablets (Wed): 1 Daily Dose (Kacey): 3.75 # of Tablets (Kacey): 1.5 Daily Dose (Fri): 2.5 # of Tablets (Fri): 1 Daily Dose (Sat): 3.75 # of Tablets (Sat): 1.5 Total Doses (mg): 20.00
== END 2018-05-10 11:06 | disposition home or self-care (01) | DRG 280 ==
LOC: 2NNU 11:28 → EMEROOARM 11:28 → SUATTDRO 15:05 → 2NNU 16:44 → 2ANU 05-07 10:23
PROVIDERS: ADMIT Internal Medicine; ATTEND Internal Medicine